=== PATIENT | female | born 1950 | race Caucasian/White ===

== ENCOUNTER → 2017-08-30 08:30 | Outpatient (CLI) | payer MEDICARE, SELFPAY ==
--- NOTE | 2017-08-30 08:34 | MM_ITS ---
MM Dig screening mamm BI w/CAD CAD Screening COMPARISON: Digital mammograms 08/25/2016 and 08/26/2015 INDICATION: There is a history of breast cancer in patient's sister diagnosed after menopause and in patient's maternal aunt. There is been previous lumpectomy right breast for malignancy TECHNIQUE: Standard CC and MLO images were obtained. R2 CAD reviewed. FINDINGS: The breasts are composed primarily of fat with scattered fibroglandular densities throughout as noted previously. Again noted is minimal post lumpectomy scarring near the axillary tail right breast with stable collection of calcifications at the lumpectomy site. There are additional benign appearing calcifications left breast. There is an asymmetric density just deep to the nipple the left breast with smooth borders and this was seen previously but may have shown slight interval increase in size. Recommend the patient return for ultrasound for additional evaluation. IMPRESSION: Fatty type breast parenchyma, post lumpectomy scarring right breast and possible subtle change in benign-appearing density left breast and recommend the patient return for ultrasound evaluation left breast BI-RADS Category: 0 Need Additional Imaging Evaluaiton RECOMMENDED FOLLOW-UP: IMM - IMMEDIATE FOLLOW-UP RECOMMENDED (A letter has been sent to the patient regarding results of the study.)
== END ==
PROVIDERS: Family Provider Family Medicine; PCP Family Medicine; Visit Provider Surgery
DX: Z12.31 Encounter for screening mammogram for malignant neoplasm of breast (principal)
CPT/HCPCS: 77067

== ENCOUNTER → 2017-09-06 14:20 | Outpatient (CLI) | payer MEDICARE, SELFPAY ==
--- NOTE | 2017-09-06 14:22 | US_ITS ---
US breast LT complete COMPARISON: Mammogram of 08/30/2017 INDICATION: Follow-up abnormal mammogram ORDERING PHYSICIAN: Sekou Vizcaino MD PATIENT AGE: 67 years TECHNIQUE: Standard images along with left breast axilla FINDINGS: There is a 7 x 9 x 3 mm cyst in the retroareolar region corresponding to the mammographic abnormality. No suspicious nodules. Small nodes are present in the axilla. IMPRESSION: Left breast nodule corresponds to a benign-appearing cyst BI-RADS Category: 2 Benign Finding(s) RECOMMENDED FOLLOW-UP: 1YR - 1 YEAR FOLLOW-UP (A letter has been sent to the patient regarding results of the study.)
== END ==
PROVIDERS: Family Provider Family Medicine; PCP Family Medicine; Visit Provider Surgery
DX: R92.8 Other abnormal and inconclusive findings on diagnostic imaging of breast (principal)
CPT/HCPCS: 76641

== ENCOUNTER → 2018-02-03 11:08 | Outpatient (CLI) | payer MEDICARE, SELFPAY ==
--- NOTE | 2018-02-03 11:12 | XR_ITS ---
XR KUB HISTORY: ITS.REASON: LT FLANK PAIN ORDERING PHYSICIAN: Markus Desai MD PATIENT AGE: 67 years COMPARISON: None FINDINGS: There are multiple right renal calculi overlying the lower pole the right kidney largest measuring up to 7 mm. Calcifications are present in the pelvis may be due to phleboliths. There is a tiny calcific density in the left pelvic region. 2 mm and could be due to a distal ureteral stone. Nonspecific bowel gas pattern with a mild amount of retained colonic feces. IMPRESSION: 1. Right nephrolithiasis. 2. Possible 2 mm left distal ureteral stone versus phlebolith
== END ==
PROVIDERS: PCP Family Medicine; Visit Provider Urology
DX: R10.9 Unspecified abdominal pain (principal); N20.0 Calculus of kidney
CPT/HCPCS: 74018; 87086; 87088; 87186

== ENCOUNTER → 2018-07-14 09:53 | Outpatient (CLI) | payer MEDICARE, SELFPAY ==
[2018-07-14 10:37] LABS: Basophils % 0.5 % (0.1-2.0); Eosinophils # 0.1 K/mm3 (0.0-0.4); Eosinophils % 1.8 % (0.1-12.0); Hematocrit 43.4 % (37.0-47.0); Hemoglobin 14.1 g/dL (12.2-16.2); Lymphocytes # 2.5 K/mm3 (0.7-4.5); Lymphocytes % 32.2 % (10-50); Mean Corpuscular HGB Conc 32.4 g/dL (31.8-35.4); Mean Corpuscular Hemoglobin 30.6 pg (27.0-31.2); Mean Corpuscular Volume 94.5 fl (81-99); Mean Platelet Volume 6.6 fl (7.4-10.4); Monocytes # 0.4 K/mm3 (0.1-1.0); Monocytes % 5.6 % (1.7-9.3); Neutrophils # 4.7 K/mm3 (1.8-7.8); Neutrophils % 59.9 % (37.0-80.0); Platelet Count 289 K/mm3 (142-424); Red Blood Count 4.59 M/mm3 (4.20-5.40); Red Cell Distribution Width 14.5 % (11.5-17.5); White Blood Count 7.8 K/mm3 (4.8-10.8)
[2018-07-14 13:23] LABS: Alanine Aminotransferase 62 U/L (12-78); Albumin Level 3.6 gm/dL (3.4-5.0); Albumin/Globulin Ratio 0.9 (1.1-1.8); Alkaline Phosphatase 118 U/L (46-116); Anion Gap 15.1 mEq/L (5-15); Aspartate Amino Transferase 31 U/L (15-37); Bilirubin,Total 0.4 mg/dL (0.2-1.0); Blood Urea Nitrogen 17 mg/dL (7-18); Calcium 9.1 mg/dL (8.5-10.1); Carbon Dioxide 28 mmol/L (21.0-32.0); Chloride 103 mmol/L (98-107); Creatinine,Serum 0.93 mg/dL (0.55-1.02); Estimated Glomerular Filt Rate 60 ml/min (>60); GFR (African American) 73 ML/MIN (>60); Glucose 105 mg/dL (74-106); Potassium 4.1 mmoL/L (3.5-5.1); Sodium 142 mmol/L (136-145); Total Protein,Serum 7.6 gm/dL (6.4-8.2)
== END ==
PROVIDERS: Visit Provider Internal Medicine Medical Oncology
DX: Z85.3 Personal history of malignant neoplasm of breast (principal)
CPT/HCPCS: 36415; 80053; 85025

== ENCOUNTER → 2018-07-20 12:33 | Outpatient (CLI) | payer MEDICARE, SELFPAY ==
--- NOTE | 2018-07-20 12:41 | XR_ITS ---
XR chest 2V HISTORY: Follow-up breast cancer ITS.REASON: breast cancer ORDERING PHYSICIAN: Alissa DAVENPORTN Lopez PATIENT AGE: 68 years COMPARISON: 09/27/2013 FINDINGS: The cardiomediastinal silhouette and pulmonary vascularity are within normal limits. The right hemidiaphragm is elevated. Patchy density is noted along the left heart border which may be due to pericardial fat pad. On the lateral view there is a nodular density lying over the anterior and mid aspect of the heart. This could be due to a summation artifact but was not readily apparent on the previous study. The remaining lungs are clear. No acute bony anomalies. IMPRESSION: 1. 1 cm nodular opacity overlies the anterior aspect of the heart on the lateral view possibly due to a summation artifact but not readily apparent previously. Follow-up is suggested. Chest CT may be of further value. If that is not performed then would at least recommend a PA and lateral chest x-ray in 4-6 weeks to see if the nodule persists. Otherwise no significant change
[2018-07-20 13:47] LABS: Thyroid Stimulating Hormone 1.79 uIU/ml (0.358-3.740)
== END ==
PROVIDERS: Visit Provider Nurse Practitioner
DX: R91.1 Solitary pulmonary nodule (principal); R53.83 Other fatigue
CPT/HCPCS: 36415; 71046; 84443

== ENCOUNTER → 2018-07-28 08:57 | Outpatient (CLI) | payer MEDICARE, SELFPAY ==
[2018-07-28 09:15] LABS: Blood Urea Nitrogen 16 mg/dL (7-18); Creatinine,Serum 0.89 mg/dL (0.55-1.02); Estimated Glomerular Filt Rate 63 ml/min (>60); GFR (African American) 77 ML/MIN (>60)
--- NOTE | 2018-07-28 09:15 | XR_ITS ---
DEXA SCAN.-BONE DENSITY STUDY HIPS AND LUMBAR SPINE HISTORY:..... Uses [id number]. Postmenopausal female TECHNIQUE: DEXA scan hip and lumbar spine The most complete data summary and color graphic presentation of the today's ( and any prior ) DEXA findings are available in PACS. Definition and treatment guidelines included. COMPARISON: January 2010 DEXA & January 2014 DEXA listed LUMBAR SPINE: Overall normal bone density lumbar spine: L2 vertebral body demonstrates the lowest T score 0.2 with BMD1.218 g/cm sq Overall mean lumbar L1-L4 T score 0.6 with BMD1.25 g/cm sq . Compared to the January 2014 DEXA the at which time the mean lumbar T score 0.8 with BMD was1.278g/cm sq Thus when comparing today's study to that prior exam there's been a 11.9% decrease mean bone density at the lumbar spine.. The markings and labeling appear satisfactory. An see no prominent marginal osteophytes to contribute. However the bone density at the lumbar spine there is remain normal -------- HIPS: Femoral neck density is best predictor of hip fracture risk . . Osteopenia at both femoral necks Right femoral neck demonstrates the lowest T score -1.6 with BMD0.816 g/cm sq . Left femoral neck T score = -1.2 with BMD 0.868 Averaging included yields yields today's Hip Mean T score = -0.9 with BMD0.896 g/cm sq . Compared to 2013 DEXA scan which showed a mean hip T score -0.7 with mean BMD0.918 g/cm sq Thus this reflects a 2.4% % decrease in overall mean bone density at the hips in the interval.. This reflects anticipated bone loss overall this length of time as as would note the age adjusted Z score has remained stable at 0.2 IMPRESSION... 1. LUMBAR SPINE: Overall normal bone density lumbar spine with. Overall lumbar T score -0.4 Lowest density at L1 vertebra noted. T score = -1.0 Note overall decrease density since prior studies but still normal density at the lumbar spine..... Warrants follow-up study 1-2 years 2. HIPS: Overall normal bone density hips. With Osteopenia both femoral necks: Overall hip T score = -0.9... Reflectsnormal bone density. Osteopenia at femoral necks bilaterally. With Right femoral neck T score = -1.6 WHO criteria for post-menopausal, Women: Normal: T-score at or above -1 SD Osteopenia: T-score between -1 and -2.5 SD Osteoporosis: T-score at or below -2.5 SD
--- NOTE | 2018-07-28 09:15 | CT_ITS ---
CT chest w con HISTORY: HISTORY of right breast cancer for years. Currently rales short of breath. Fatigue. ITS.REASON: lung nodule ORDERING PHYSICIAN: Alissa ROLLINS John PATIENT AGE: 68 years COMPARISON: PA and lateral chest July 20, 2018 residual nodule projected over the anterior chest and the heart. And chest Technique: Axial images obtained. Sagittal and coronal reformatted images are also generated and reviewed. All CT scans at the facility use one or more dose reduction, viz: automated exposure control, ma/kV adjustment per patient size (including targeted exams where dose is matched to indication, i.e. head), or iterative reconstruction technique. FINDINGS: Lungs. There is a linear area of scarring extending anteriorly at the RML is some slight undulation only slightly nodular in its appearance here the sagittal reconstruction sagittal image 33, 34, 36) axial slice 40, 39. This feature accounts for the density seen on the plain film no suspicious mass or density here. I strongly favor this is merely scarring but may benefit from follow-up with given history. Elevation of the right hemidiaphragm here anteriorly just beneath this area which may reflect some associated changes. . There is a is a tiny less than 3 mm peripheral nodule at the lateral right lung base axial image 52. Most likely a small partially calcified granuloma. Given its density for its small size There is a small 4 mm peripheral nodule on axial slice 42, posterior RLL. This also appears fairly dense for size on sagittal image 68. Most likely a small granuloma as well but nonspecific. Most importantly see no suspicious nodule or mass suspect for metastatic disease. Lungs Well expanded and clear otherwise. No pleural lesion. Borderline airway thickening centrally. No hilar nor mediastinal adenopathy. There is normal enhancement of the central pulmonary arteries. No evidence of pulmonary embolism. Aorta is normal in caliber. Benign appearing lymph node right precarinal region measuring 12 mm x 7.5 mm. Contains fat with benign thin cortex. The heart appears normal in size. No pericardial effusion Uppermost abdomen, mild fatty changes of liver. No significant findings. No significant adrenal mass. There is cortical thinning and scarring at the upper pole the of the right kidney. A benign appearing cyst 1 cm size upper pole left kidney, instantly noted. Osseous structures. T-spine intact with only very slight wedge configuration mid T-spine vertebra I believe T7. Unchanged since old studies. Old feature. May reflect mild old compression. The ribs are intact. Thyroid and limited views base of neck unremarkable. Chest wall unremarkable. IMPRESSION--- 1. No good evidence of metastatic disease.. . No acute pulmonary findings. No focal pneumonia.Only borderline airway thickening centrally 2. Minor observations which would benefit from 6 month follow-up CT noted: . Slight irregular slight nodular I believe linear scarring is seen at the medial aspect RML- just adjacent to the right heart border.. Of these areas of density of appear to account for the minimal density on prior lateral chest film. Strongly favor merely scarring but would suggest a follow-up CT chest in 6 months to confirm stability, particularly in view of history No suspicious appearing nodules otherwise evident.Tiny less than 4 mm nodules at the periphery of both right and left lower lobe towards lung bases. These are fairly dense for size and suspect or granulomas but will benefit from follow-up .....
== END ==
PROVIDERS: Visit Provider Nurse Practitioner
DX: R91.1 Solitary pulmonary nodule (principal); Z79.811 Long term (current) use of aromatase inhibitors
CPT/HCPCS: 36415; 71260; 77080; 82565; 84520; Q9967

== ENCOUNTER → 2018-09-09 12:34 | Outpatient (CLI) | payer MEDICARE, SELFPAY ==
--- NOTE | 2018-09-09 12:37 | US_ITS ---
MM Dig mamm BI DX w/CAD, US breast LT complete Ordering Physician: Sekou Vizcaino MD Patient Age: 68 years: Female HISTORY: ITS.REASON: history of rt breast CA right breast upper-outer quadrant Asked to dictate this report with patient at office TECHNIQUE: Bilateral diagnostic mammogram with Spot views left breast Ultrasound left breast COMPARISON :August 2017, 2016, 2015 bilateral mammogram FINDINGS Minimal residual fibroglandular elements with lower density breast. BILATERAL DIAGNOSTIC MAMMOGRAM with at Spot views left breast Right Mammogram appears fairly stable with no significant new findings. . Patient has had a lumpectomy upper-outer quadrant right breast. At or just deep to this site there there are some calcifications which appear similar to last years study and most likely reflecting postbiopsy calcifications, fat necrosis. Minimal residual density at the area. These features appear similar to last years mammogram. No significant new findings on right. Left Mammogram Scattered small areas of density but with no suspicious area. . These areas been seen on previous mammogram studies. Dating back to 2016. Period along the nodular densities labeled X is slightly more evident but does have a relative central lucency on the cc views. Favor benign feature. Six-month follow-up suggested. ====== LEFT BREAST ULTRASOUND Subsequent ultrasound performed at that visit does reveal up to 9.6 mm cyst cyst at retroareolar region which account for this slightly larger retroareolar nodular density here.. No other areas of concern identified on today's ultrasound. Follow-up left mammogram and left breast ultrasound 6 months suggested. IMPRESSION: --------- 1.. LEFT mammogram scattered small areas of density fairly similar to previous studies. Appear benign but Suggest follow-up mammogram and ultrasound 6 months to be cautious with patient's history 2. LEFT breast ultrasound.. Benign cyst retroareolar region on slightly larger 9.6 mm maximally, but benign appearance No other areas of concern 3. Right mammogram Previous lumpectomy upper-outer quadrant. Minimal calcification, associated with minimal density, most certainly reflecting lumpectomy scarring along with fat necrosis calcifications at deep upper-outer quadrant.-This is fairly stable since, since 2018 mammogram but would benefit from follow-up as well when patient returns. BI-RADS Category: 3 Probably Benign Finding Short Term Follow-up RECOMMENDED FOLLOW-UP: 6M - 6 MONTH FOLLOW-UP Follow up bilateral 6 -8month follow-up bilateral mammogram. With Left breast ultrasound at 6-8 months as well . (A letter has been sent to the patient regarding results of the study.)
== END ==
PROVIDERS: PCP Family Medicine; Visit Provider Surgery
DX: Z85.3 Personal history of malignant neoplasm of breast (principal); N60.02 Solitary cyst of left breast
CPT/HCPCS: 76641; 77066

== ENCOUNTER → 2019-03-13 12:45 | Outpatient (CLI) | payer MEDICARE, SELFPAY ==
--- NOTE | 2019-03-13 12:57 | US_ITS ---
MM Dig mamm BI DX w/CAD, US breast LT complete INDICATION: 6 month follow-up abnormal mammogram ORDERING PHYSICIAN: Sekou Vizcaino MD PATIENT AGE: 68 years COMPARISON: 09/09/2018, 08/30/2017 TECHNIQUE: Standard images performed along with magnified spot compression views of both breasts FINDINGS: Average fibroglandular tissue Right Breast: Prior lumpectomy upper outer aspect with some architectural distortion. Unchanged Coarse calcification in the deep upper outer aspect of the right breast appears stable. No malignant appearing mass or malignant appearing microcalcification Left breast: Previously noted nodular density in the lateral aspect of the left breast no longer apparent. Nodularity medial aspect of left breast unchanged. Left breast ultrasound: There is a 9 mm cyst in the retroareolar region similar to the previous exam. No malignant appearing mass. No significant change from 09/09/2018 IMPRESSION: Benign findings, no interval change with no convincing evidence of malignancy. Suggest patient return to screening exam in 6 months the patient back on schedule BI-RADS Category: 2 Benign Finding(s) RECOMMENDED FOLLOW-UP: 6M - 6 MONTH FOLLOW-UP (A letter has been sent to the patient regarding results of the study.)
[2019-03-13 13:05] LABS: Basophils % 0.3 % (0.1-2.0); Eosinophils # 0.1 K/mm3 (0.0-0.4); Eosinophils % 1.7 % (0.1-12.0); Hematocrit 41.9 % (37.0-47.0); Hemoglobin 13.7 g/dL (12.2-16.2); Lymphocytes # 2.5 K/mm3 (0.7-4.5); Lymphocytes % 34.2 % (10-50); Mean Corpuscular HGB Conc 32.7 g/dL (31.8-35.4); Mean Corpuscular Hemoglobin 30.3 pg (27.0-31.2); Mean Corpuscular Volume 92.5 fl (81-99); Mean Platelet Volume 6.4 fl (7.4-10.4); Monocytes # 0.4 K/mm3 (0.1-1.0); Monocytes % 5.4 % (1.7-9.3); Neutrophils # 4.3 K/mm3 (1.8-7.8); Neutrophils % 58.4 % (37.0-80.0); Platelet Count 290 K/mm3 (142-424); Red Blood Count 4.53 M/mm3 (4.20-5.40); Red Cell Distribution Width 13.9 % (11.5-17.5); White Blood Count 7.4 K/mm3 (4.8-10.8)
[2019-03-13 14:26] LABS: Alanine Aminotransferase 71 U/L (12-78); Albumin Level 3.7 gm/dL (3.4-5.0); Albumin/Globulin Ratio 0.9 (1.1-1.8); Alkaline Phosphatase 119 U/L (46-116); Aspartate Amino Transferase 34 U/L (15-37); Bilirubin,Total 0.3 mg/dL (0.2-1.0); Blood Urea Nitrogen 16 mg/dL (7-18); Calcium 9.2 mg/dL (8.5-10.1); Carbon Dioxide 26 mmol/L (21.0-32.0); Chloride 102 mmol/L (98-107); Creatinine,Serum 1.04 mg/dL (0.55-1.02); Estimated Glomerular Filt Rate 53 ml/min (>60); GFR (African American) 64 ML/MIN (>60); Globulin 3.9 gm/dl (1.3-3.2); Glucose 115 mg/dL (74-106); Sodium 139 mmol/L (136-145); Total Protein,Serum 7.6 gm/dL (6.4-8.2)
--- NOTE | 2019-03-13 14:44 | CT_ITS ---
CT chest w con HISTORY: Follow-up lung nodules ITS.REASON: BREAST CANCER, PULMONARY NODULES ORDERING PHYSICIAN: Sekou Vizcaino MD PATIENT AGE: 68 years COMPARISON: 07/28/2018 Technique: Contrast Used:75ml Optiray 350 Axial images were obtained. Sagittal, and coronal reformatted images are also generated and reviewed. All CT scans at the facility use one or more dose reduction, viz: automated exposure control, ma/kV adjustment per patient size (including targeted exams where dose is matched to indication, i.e. head), or iterative reconstruction technique. FINDINGS: There are scattered small lymph nodes in the mediastinum. No dominant adenopathy or mediastinal or hilar mass is evident. There are few scattered small noncalcified pulmonary nodules including a 3 mm nodule left upper lobe, 13 mm nodule right lower lobe laterally and anteriorly. Scarring in the right middle lobe. No new nodules evident. No effusions or infiltrates. Scarring is present in the kidneys and the upper poles. No acute bony findings. There is mild narrowing of the celiac artery of approximately 50%. IMPRESSION: 1. Overall no significant change with no acute finding. 2. Stable small bilateral nodular opacities
== END ==
PROVIDERS: Nurse Practitioner; PCP Family Medicine; Visit Provider Surgery
DX: Z85.3 Personal history of malignant neoplasm of breast (principal); C50.911 Malignant neoplasm of unspecified site of right female breast; R91.8 Other nonspecific abnormal finding of lung field
CPT/HCPCS: 36415; 71260; 76641; 77066; 80053; 85025; Q9967

== ENCOUNTER → 2019-08-28 09:25 | Outpatient (CLI) | payer MEDICARE, SELFPAY ==
[2019-08-28 10:15] LABS: Alanine Aminotransferase 46 U/L (12-78); Albumin Level 3.2 gm/dL (3.4-5.0); Albumin/Globulin Ratio 0.8 (1.1-1.8); Alkaline Phosphatase 118 U/L (46-116); Aspartate Amino Transferase 29 U/L (15-37); Bilirubin,Total 0.3 mg/dL (0.2-1.0); Blood Urea Nitrogen 18 mg/dL (7-18); Calcium 8.5 mg/dL (8.5-10.1); Carbon Dioxide 28 mmol/L (21.0-32.0); Chloride 105 mmol/L (98-107); Creatinine,Serum 1.09 mg/dL (0.55-1.02); Estimated Glomerular Filt Rate 50 ml/min (>60); GFR (African American) 61 ML/MIN (>60); Globulin 3.9 gm/dl (1.3-3.2); Glucose 116 mg/dL (74-106); Sodium 144 mmol/L (136-145); Total Protein,Serum 7.1 gm/dL (6.4-8.2)
== END ==
PROVIDERS: Visit Provider Nurse Practitioner
DX: C50.911 Malignant neoplasm of unspecified site of right female breast (principal); R91.8 Other nonspecific abnormal finding of lung field; C44.722 Squamous cell carcinoma of skin of right lower limb, including hip
CPT/HCPCS: 36415; 80053

== ENCOUNTER → 2019-08-29 12:34 | Outpatient (CLI) | payer MEDICARE, SELFPAY ==
--- NOTE | 2019-08-29 12:37 | CT_ITS ---
PROCEDURE: CT CHEST W CON CLINCAL INDICATION: BREAST CANCER, PULMONARY NODULE Follow-up pulmonary nodule she at COMPARISON: CT CHEST W CON from 03/13/2019 TECHNIQUE: IV Contrast: 75ml Optiray 350 Axial images obtained with sagittal and coronal reformats. All CT scans at the facility use one or more dose reduction, viz: automated exposure control, ma/kV adjustment per patient size (including targeted exams where dose is matched to indication, i.e. head), or iterative reconstruction technique. FINDINGS: HEART,AORTA,PULMONARY ARTERIES Unremarkable. MEDIASTINAL AND HILAR STRUCTURES: No mediastinal or hilar mass or adenopathy LUNGS: There is a stable 3 mm nodule in the right lower lobe. There is a stable 4 mm nodule in the left lung base. No new nodules are evident.. Upper abdominal images are unremarkable. No acute bony findings. PLEURAL SPACES: No significant effusion. No evidence of pneumothorax. BONY STRUCTURES: No acute bony abnormalities apparent. LYMPH NODES: No enlarged lymph nodes evident. UPPER ABDOMEN: Unremarkable. ADDITIONAL FINDINGS: No other significant abnormalities. IMPRESSION: Stable CT appearance of the chest. Small pulmonary nodular opacities are unchanged. Dictated by: Osbaldo De La Cruz MD 08/30/2019 10:48 Electronically signed by Osbaldo De La Cruz MD in [place] 08/30/2019 10:48
== END ==
PROVIDERS: PCP Family Medicine; Visit Provider Nurse Practitioner
DX: R91.8 Other nonspecific abnormal finding of lung field (principal)
CPT/HCPCS: 71260; Q9967

== ENCOUNTER → 2019-09-11 11:57 | Outpatient (CLI) | payer MEDICARE, SELFPAY ==
--- NOTE | 2019-09-11 12:03 | XR_ITS ---
PROCEDURE: XR CHEST 2V CLINICAL HISTORY: BRONCHITIS , History of breast cancer COMPARISON: CXR CHEST(2 VIEWS-NOT PORTABLE) from 09/28/2012 CXR CHEST(2 VIEWS-NOT PORTABLE) from 09/27/2013 CXR2V XR chest 2V from 07/20/2018 CT CHEST W CON from 08/29/2019 FINDINGS: The cardiomediastinal silhouette and pulmonary vascularity are within normal limits. There are chronic changes in the lung bases. No lobar consolidation or collapse. The right hemidiaphragm is elevated as before anteriorly No acute bony abnormalities. IMPRESSION: Chronic changes. No acute finding Dictated by: Osbaldo De La Cruz MD 09/11/2019 14:12 Electronically signed by Osbaldo De La Cruz MD in [facility] 09/11/2019 14:12
== END ==
PROVIDERS: PCP Family Medicine; Visit Provider Nurse Practitioner Family
DX: J40 Bronchitis, not specified as acute or chronic (principal)
CPT/HCPCS: 71046

== ENCOUNTER → 2019-09-22 12:44 | Outpatient (CLI) | payer MEDICARE, SELFPAY ==
--- NOTE | 2019-09-22 12:44 | MM_ITS ---
PROCEDURE: MM DIG SCREENING MAMM BI W/CAD Patient Age:69Y CLINICAL INDICATION: 6 mo fu, HO rt breast cancer, lt breast nodule Previous excisional biopsy/lumpectomy for malignancy 6 years ago. Family history sister with breast cancer. Maternal aunt with breast cancer. No hormones no new complaints COMPARISON: [facility] DIG MAMM-SURGICAL SPECIMEN from 08/25/2013 [facility] DIG MAMM-DX UNI-RT from 08/25/2013 [facility] DIG MAMM-SCREEN FRANCINE from 08/13/2014 [facility] DIG MAMM-SCREEN FRANCINE from 08/26/2015 [facility] DIG MAMM-DX FRANCINE W/CAD from 08/25/2016 [facility] MM Dig screening mamm BI w/CAD from 08/30/2017 BREASTLT US breast LT complete from 09/06/2017 [facility] MM Dig mamm BI DX w/CAD from 09/09/2018 MM DIG MAMM BI DX W/CAD from 03/13/2019 US BREAST LT COMPLETE from 03/13/2019 US BREAST LT COMPLETE from 09/22/2019 TECHNIQUE: Standard CC and MLO images were obtained. R2 CAD reviewed. FINDINGS: Right breast The previous biopsy/lumpectomy at deep axillary right breast. There is collection of heterogeneous calcifications at the biopsy site. Although although majority of these have been seen before and strongly favor this reflects fat necrosis the variable forms and a few additional tiny calcifications posterior aspect of this area noted today thus would benefit from magnification views to further evaluate to be cautious. The new PAC system will not allow allowed to view last year's report here Otherwise no new areas of the right breast the the the wall Left breast demonstrates the small round density left the retroareolar position. This is been seen on multiple previous studies compatible with a benign cyst. Measuring 8.5 mm today's mammography and found to be a benign cyst on subsequent ultrasound from today. No new areas of concern on left the mom IMPRESSION: Right breast: Patient has had a lumpectomy towards axillary tail right breast. A grouping of heterogeneous calcifications here has been seen before most certainly reflects fat necrosis, however suggestion of a few increased number of small calcifications along the posterior aspect of this area on today's images, thus believe would benefit from magnification views of this area to better evaluate Left breast No new areas of concern. Stable benign cyst retroareolar position BI-RAD Category: 0 Need Additional Imaging Evaluation FOLLOW-UP: IMM Immediate Follow-up Recommended Magnification views of calcifications axillary tail right breast suggested-most likely fat necrosis (A letter has been sent to the patient regarding results of the study.) Dictated by: Karl Bruno MD 09/27/2019 09:29 Electronically signed by Karl Bruno MD in [place] 09/27/2019 09:29
--- NOTE | 2019-09-22 12:44 | US_ITS ---
PROCEDURE: US BREAST LT COMPLETE CLINICAL INDICATION: 6 mo fu COMPARISON: US BREAST LT COMPLETE from 03/13/2019 FINDINGS: Benign appearing cystic lesion is seen in the retroareolar region 9.4 x 9.8 x 4.5 millimeters. This did measure 9.3 x 10.1 x 4.2 millimeters previously with some faint internal echoes. Predominantly fatty replaced axillary lymph nodes are noted largest 3.7 centimeters. IMPRESSION: BI-RADS category 2 benign Dictated by: Carrington William 09/23/2019 10:36 Electronically signed by Carrington William in [facility] 09/23/2019 10:36
== END ==
PROVIDERS: PCP Family Medicine; Visit Provider Surgery
DX: N60.02 Solitary cyst of left breast (principal); Z12.31 Encounter for screening mammogram for malignant neoplasm of breast; Z85.3 Personal history of malignant neoplasm of breast
CPT/HCPCS: 76641; 77063; 77067

== ENCOUNTER → 2019-10-03 10:27 | Outpatient (POV) | payer MEDICARE, SELFPAY | PROVIDERS: PCP Family Medicine; Visit Provider Dermatology | DX: Z00.00 Encounter for general adult medical examination without abnormal findings (principal) ==

== ENCOUNTER → 2019-10-10 14:18 | Outpatient (CLI) | payer MEDICARE, SELFPAY ==
--- NOTE | 2019-10-10 14:18 | MM_ITS ---
PROCEDURE: MM DIG MAMM DX UNILAT RT CAD Digital Breast Tomosynthesis Included CLINICAL INDICATION: Mag views of RT breast per Radiologist The right breast calcifications COMPARISON: [facility] DIG MAMM-SCREEN FRANCINE from 08/26/2015 [facility] MM Dig screening mamm BI w/CAD from 08/30/2017 [facility] MM Dig mamm BI DX w/CAD from 09/09/2018 MM DIG MAMM BI DX W/CAD from 03/13/2019 MM DIG SCREENING MAMM BI W/CAD from 09/22/2019 TECHNIQUE: Magnification compression views and right mL views obtained. FINDINGS: There is average fibroglandular tissue. Coarse benign-appearing calcifications are once again noted in the deep upper outer aspect of the right breast. In addition, there are some indeterminate calcifications noted posterior to the coarse calcifications. These may represent areas of fat necrosis or vascular calcification. Six-month follow-up is suggested. IMPRESSION: BI-RAD Category: 3 Probably Benign Finding Short Term Follow-up FOLLOW-UP: 6M 6Month Follow-up (A letter has been sent to the patient regarding results of the study.) Dictated by: Osbaldo De La Cruz MD 10/16/2019 10:19 Electronically signed by Osbaldo De La Cruz MD in [place] 10/16/2019 10:19
== END ==
PROVIDERS: PCP Family Medicine; Visit Provider Surgery
DX: Z85.3 Personal history of malignant neoplasm of breast (principal)
CPT/HCPCS: 77061; 77065; G0279

== ENCOUNTER → 2020-04-22 10:05 | Outpatient (CLI) | payer MEDICARE, SELFPAY ==
[2020-04-22 10:41] LABS: Basophils # 0.1 K/mm3 (0-0.2); Basophils % 0.6 % (0.1-2.0); Eosinophils # 0.1 K/mm3 (0.0-0.4); Eosinophils % 1.5 % (0.1-12.0); Hemoglobin 14.9 g/dL (12.2-16.2); Lymphocytes # 2.5 K/mm3 (0.7-4.5); Lymphocytes % 31.3 % (10-50); Mean Corpuscular HGB Conc 34.5 g/dL (31.8-35.4); Mean Corpuscular Hemoglobin 32.6 pg (27.0-31.2); Mean Corpuscular Volume 94.3 fl (81-99); Mean Platelet Volume 6.7 fl (7.4-10.4); Monocytes # 0.4 K/mm3 (0.1-1.0); Neutrophils % 61.6 % (37.0-80.0); Platelet Count 255 K/mm3 (142-424); Red Blood Count 4.57 M/mm3 (4.20-5.40); Red Cell Distribution Width 14.4 % (11.5-17.5); White Blood Count 8.1 K/mm3 (4.8-10.8)
[2020-04-22 11:31] LABS: Chloride 102 mmol/L (98-107); Potassium 4.2 mmoL/L (3.5-5.1); Sodium 139 mmol/L (136-145)
[2020-04-22 11:34] LABS: Alanine Aminotransferase 54 U/L (12-78); Albumin Level 4.1 g/dl (3.5-5.0); Albumin/Globulin Ratio 1.2 (1.1-1.8); Alkaline Phosphatase 106 U/L (38-126); Anion Gap 12.2 mEq/L (5-15); Aspartate Amino Transferase 48 U/L (14-36); Bilirubin,Total 0.5 mg/dl (0.2-1.3); Blood Urea Nitrogen 17 mg/dl (7-17); Carbon Dioxide 29 mmol/L (22.0-30.0); Estimated Glomerular Filt Rate 71 ml/min (>60); GFR (African American) 86 ML/MIN (>60); Globulin 3.4 g/dL (1.3-3.2); Total Protein,Serum 7.5 g/dl (6.3-8.2)
[2020-04-22 11:35] LABS: Calcium 9.3 mg/dl (8.4-10.2); Glucose 118 mg/dl (74-100)
== END ==
PROVIDERS: Visit Provider Internal Medicine Medical Oncology
DX: Z85.3 Personal history of malignant neoplasm of breast (principal)
CPT/HCPCS: 36415; 80053; 85025

== ENCOUNTER → 2020-04-24 12:50 | Outpatient (CLI) | payer MEDICARE, SELFPAY ==
--- NOTE | 2020-04-24 12:50 | MM_ITS ---
PROCEDURE: MM DIG MAMM DX UNILAT RT CAD Digital Breast Tomosynthesis Included CLINICAL INDICATION: History of breast cancer COMPARISON: MG MM DIG MAMM BI DX W/CAD from 03/13/2019 MG MM DIG SCREENING MAMM BI W/CAD from 09/22/2019 MG MM DIG MAMM DX UNILAT RT CAD from 10/10/2019 TECHNIQUE: Using Mag views of the right breast with isaias FINDINGS: Mostly fatty replaced fibroglandular tissue. Coarse calcifications are once again noted in the deep lateral aspect of the right breast with some faint calcifications posteriorly to the coarse calcifications. No malignant appearing mass or malignant-appearing microcalcification. No significant change. IMPRESSION: Benign findings. Recommend return to screening mammogram September 2020 BI-RAD Category: 2 Benign Finding(s) FOLLOW-UP: 6M 6Month Follow-up (A letter has been sent to the patient regarding results of the study.) Dictated by: Osbaldo De La Cruz MD 05/01/2020 17:26 Osbaldo De La Cruz MD in [place] 05/01/2020 17:26
== END ==
PROVIDERS: PCP Family Medicine; Visit Provider Surgery
DX: Z85.3 Personal history of malignant neoplasm of breast (principal)
CPT/HCPCS: 77061; 77065; G0279

== ENCOUNTER → 2020-06-04 10:04 | Outpatient (CLI) | payer MEDICARE, SELFPAY ==
[2020-06-04 11:12] LABS: Coronavirus 19 IgG Antibody Negative (Negative); Coronavirus 19 IgM Antibody Negative (Negative)
== END ==
PROVIDERS: Visit Provider Surgery
DX: Z01.818 Encounter for other preprocedural examination (principal); Z12.11 Encounter for screening for malignant neoplasm of colon
CPT/HCPCS: 36415; 86328

== ENCOUNTER 2020-06-06 06:19 | Day surgery (SDC) | payer MEDICARE, SELFPAY ==
[2020-06-04 10:23] VITALS: BMI 27.1
[2020-06-06 06:36] VITALS: BP 149/77; PULSE 83; RESP 18; TEMP 36.6; O2SAT 98
--- NOTE | 2020-06-06 07:16 | P.PN_ITS ---
[facility] Anesthesia Checklist - Patient Identification Patient Identification: Arm Band - Structural Data Admitted From: Home Planned Operative Procedure/s: colon Consent for Planned Operative Procedure(s) Verified: Yes Verified Documents: History and Physical - NPO Status Verified Time NPO: 00:00 - Chart Verification Results Verified: CBC, BMP - Additional verifications Patient : No Anesthesia Reactions: No Hx Blood Transfusions: No Blood Transfusion Reaction: No Cephalosporin Allergy: No Previous Colonoscopy: Yes - Cardiovascular Assessment Heart Sounds: S1 & S2 Pulse Strength: Baseline Pulse Rhythm: Regular Peripheral Edema: No - Airway Assessment C-Spine Mobility Assessed: Yes TMJ Mobility Assessed: Yes Dentition: Good Dentition - Neurological Assessment Level of Consciousness: Awake, Alert, Appropriate Hx Seizures: No Numbness or tingling in extremities: No - Anesthesia Plan Anesthesia Risk discussed: Yes Anesthesia Plan: Verified ASA Class: II Anesthesia Type: MAC [facility] History I have reviewed the patient's past medical history: Yes Medical History: Reports:: Cancer (breast and skin), Kidney Stones Denies:: Diabetes Mellitus Type 1, Diabetes Mellitus Type 2, Internal Pacemaker, Lung Disease, MRSA, Seizures *Have you ever received a pneumonia vaccine?: Yes *Have you received a flu vaccine this season?: Yes Other Medical History: Reports: Arthritis, Radiation Therapy Anesthesia experience/problems:: none Laterality Cases: Right: Breast Biopsy, Lumpectomy, Mastectomy, Bilateral: Other Other Surgeries: Yes: Cancer Surgery, Cholecystectomy, Colonoscopy, EGD, Tubal Ligation, Other. No: Pacemaker Amputation: No Fractures: No - *Social History Last grade of school completed: Advanced degree Smoking Status: Never smoker Alcohol Intake: never Alcohol Intake Frequency:: other Substance Use Type: denies use *Occupational Status:: retired Housing: house Household Members: spouse *Travel in the last 8 weeks: None Family Hx:: Cancer, Heart Attack, Hyperlipidemia, Hypertension, Stroke
[2020-06-06 07:21] VITALS: O2SAT 98
[2020-06-06 08:03] VITALS: BP 96/64; PULSE 83; RESP 18; TEMP 36.3; O2SAT 95
--- NOTE | 2020-06-06 08:05 | HMH.SCOPE ---
- Procedure: Date: 06/06/20 Patient Date of :: 1950 Procedure Performed:: Colonoscopy with polypectomy Indications:: History of colon polyps Performing Provider:: Sekou Vizcaino MD Referring Provider:: . Sedation:: Monitored anesthesia care Procedure:: After informed consent was obtained the patient was taken to the endoscopy suite. Sedation ensued after the patient was transferred to the left lateral decubitus position. Pulse, blood pressure, and oxygen saturation were monitored throughout the procedure. Digital rectal exam revealed no significant abnormality. The colonoscope was placed in position. The entire colon was evaluated. The colonoscope was carefully removed and the patient was transferred to recovery in stable condition. Please see findings and specimens below for detail. Findings:: Mild hemorrhoidal tags Bowel preparation relatively fair with some formed stool/food particles distally Fairly significant lack of relaxation Area of tattoo (right colon) with no obvious polypoid lesions Polyps (see specimens) Specimens:: Periappendiceal polyp Sessile right colon polyp (snare) -close to but not within tattoo site Sessile polyp at 65 cm (snare) Polyp at 50 cm Recommendations:: Timing of repeat colonoscopy is pending pathology but will likely be around 2-3 years secondary to history of significant polyps, polyps during this evaluation, and moderate lack of relaxation. Complications:: No immediate Estimated blood obtained (mL): 1
[2020-06-06 08:13] VITALS: BP 96/56; PULSE 74; RESP 18; O2SAT 94
[2020-06-06 08:23] VITALS: BP 110/69; PULSE 65; RESP 18; O2SAT 95
[2020-06-06 08:33] VITALS: BP 109/59; PULSE 71; RESP 18; O2SAT 95
== END 2020-06-06 08:33 | disposition home or self-care (01) ==
LOC: OUTP 06:21
PROVIDERS: PCP Family Medicine; Visit Provider Surgery
PROC: 0DJD8ZZ Inspection of Lower Intestinal Tract, Via Natural or Artificial Opening Endoscopic (ICD-10-PCS; CPT 45380; principal; 2020-06-06 07:30)
DX: Z12.11 Encounter for screening for malignant neoplasm of colon (principal); K63.5 Polyp of colon; K64.0 First degree hemorrhoids; K62.89 Other specified diseases of anus and rectum; Z86.010 Personal history of colon polyps; Z85.3 Personal history of malignant neoplasm of breast
CPT/HCPCS: 45380; 45385; 88305

== ENCOUNTER → 2020-07-29 09:29 | Outpatient (CLI) | payer MEDICARE, SELFPAY ==
--- NOTE | 2020-07-29 09:32 | XR_ITS ---
PROCEDURE: XR DEXA AXIAL SKELETON CLINICAL HISTORY: BREAST CANCER patient is postmenopausal currently on vitamin-D. COMPARISON: No exams were available for comparison FINDINGS: The right hip BMD is 0.805 grams/centimeters squared with a T-score of -1.1. The left hip BMD is 0.874 grams/centimeter squared with a T-score of -0.6. The lumbar spine BMD is 0.932 grams/centimeter squared with a T-score of -1.0. IMPRESSION: Borderline osteopenia lumbar spine, mild osteopenia values of both hips Based on these results a follow-up exam is recommended in 2 year. Dictated by: Dr. Zach Mcguire MD 07/29/2020 14:38 Dr. Zach Mcguire MD in [place] 07/29/2020 14:38
== END ==
PROVIDERS: PCP Family Medicine; Visit Provider Internal Medicine Medical Oncology
DX: Z13.820 Encounter for screening for osteoporosis (principal); Z79.811 Long term (current) use of aromatase inhibitors; Z85.3 Personal history of malignant neoplasm of breast
CPT/HCPCS: 77080

== ENCOUNTER → 2020-09-24 09:53 | Outpatient (CLI) | payer MEDICARE, SELFPAY ==
--- NOTE | 2020-09-24 09:55 | MM_ITS ---
PROCEDURE: MM DIG SCREENING MAMM BI W/CAD Digital Breast Tomosynthesis Included CLINICAL INDICATION: SCREENING There is a history of lumpectomy right breast for malignancy. There is a history of breast cancer in patient's sister and 2 maternal aunts COMPARISON: MG MM DIG SCREENING MAMM BI W/CAD from 09/22/2019 MG MM DIG MAMM DX UNILAT RT CAD from 10/10/2019 MG MM DIG MAMM DX UNILAT RT CAD from 04/24/2020 TECHNIQUE: Standard CC and MLO images and 3D Tomosynthesis was obtained. R2 CAD reviewed. FINDINGS: Minimal scattered fibroglandular densities are seen throughout both breasts. There is very minimal post lumpectomy scarring near the axillary tail right breast with a couple of coarse appearing microcalcifications at the surgical site which are stable and unchanged from the previous exams. There are no CAD markings. There are a couple of benign-appearing microcalcifications left breast and a single benign-appearing microcalcifications central portion right breast. There is a stable benign-appearing nodular density just deep to the nipple left breast likely a small cyst or fibroadenoma. IMPRESSION: Stable exam with very minimal postlumpectomy changes near the axillary tail right breast and no suspicious lesions seen BI-RAD Category: 2 Benign Finding(s) FOLLOW-UP: 1YR 1 Year Follow-up (A letter has been sent to the patient regarding results of the study.) Dictated by: Dr. Zach Mcguire MD 09/26/2020 12:23 Dr. Zach Mcguire MD in [place] 09/26/2020 12:23
== END ==
PROVIDERS: PCP Family Medicine; Visit Provider Surgery
DX: Z12.31 Encounter for screening mammogram for malignant neoplasm of breast (principal); Z85.3 Personal history of malignant neoplasm of breast
CPT/HCPCS: 77063; 77067

== ENCOUNTER → 2020-11-05 15:13 | Outpatient (POV) | payer MEDICARE, SELFPAY | PROVIDERS: Visit Provider Dermatology | DX: Z00.00 Encounter for general adult medical examination without abnormal findings (principal) ==

== ENCOUNTER → 2021-06-16 11:10 | Outpatient (CLI) | payer MEDICARE, SELFPAY ==
[2021-06-16 14:22] LABS: Blood Urea Nitrogen 12 mg/dl (7-17); Estimated Glomerular Filt Rate 83 ml/min (>60); GFR (African American) 100 ML/MIN (>60)
== END ==
PROVIDERS: Visit Provider Internal Medicine Medical Oncology
DX: Z01.812 Encounter for preprocedural laboratory examination (principal); C50.911 Malignant neoplasm of unspecified site of right female breast
CPT/HCPCS: 36415; 82565; 84520

== ENCOUNTER → 2021-06-17 12:57 | Outpatient (CLI) | payer MEDICARE, SELFPAY ==
--- NOTE | 2021-06-17 13:01 | CT_ITS ---
PROCEDURE: CT CHEST W CON CLINCAL INDICATION: BREAST CA COMPARISON: CT CT CHEST W CON from 08/29/2019 TECHNIQUE: IV Contrast: 75ml Isovue 370 Axial images obtained with sagittal and coronal reformats. All CT scans at the facility use one or more dose reduction, viz: automated exposure control, ma/kV adjustment per patient size (including targeted exams where dose is matched to indication, i.e. head), or iterative reconstruction technique. FINDINGS: HEART AND MEDIASTINAL STRUCTURES: Unremarkable. LUNGS AND PLEURAL SPACES: Stable 3 mm nodule right lower lobe laterally suggesting a granuloma. Stable 3 mm nodule left lower lobe. No new nodules evident. BONY STRUCTURES: No acute bony abnormalities apparent. UPPER ABDOMEN: Please see abdomen report performed on the same day ADDITIONAL FINDINGS: No other significant abnormalities. IMPRESSION: Stable CT appearance of the chest. Dictated by: Osbaldo De La Cruz MD 06/18/2021 17:06 Osbaldo De La Cruz MD in [place] 06/18/2021 17:06
== END ==
PROVIDERS: PCP Family Medicine; Visit Provider Internal Medicine Medical Oncology
DX: C50.911 Malignant neoplasm of unspecified site of right female breast (principal); R91.1 Solitary pulmonary nodule
CPT/HCPCS: 71260; Q9967

== ENCOUNTER → 2021-09-26 07:50 | Outpatient (CLI) | payer MEDICARE, SELFPAY ==
--- NOTE | 2021-09-26 07:50 | MM_ITS ---
PROCEDURE INFORMATION: Exam: MG Bilateral Screening 3D Mammography Exam date and time: 09/26/2021 7:50 AM Age: 71 years old Clinical indication: Encounter for screening mammogram for malignant neoplasm of breast TECHNIQUE: Imaging protocol: Bilateral Screening tomosynthesis and 2D mammography including computer-aided detection (CAD) when performed. COMPARISON: 1. MG MM DIG SCREENING MAMM BI W/CAD 09/24/2020 10:04 AM 2. MG MM DIG MAMM DX UNILAT RT CAD 04/24/2020 1:10 PM FINDINGS: MAMMOGRAPHY: Breast composition: The breasts are almost entirely fatty. Mass: No suspicious mass. Architectural distortion: None. Calcifications: No suspicious calcifications. Asymmetric density: None. Skin thickening: None. Axillary adenopathy: None. IMPRESSION: No mammographic evidence of malignancy. Annual screening is recommended unless otherwise clinically indicated. ASSESSMENT: BI-RADS Category 1: Negative
== END ==
PROVIDERS: PCP Family Medicine; Visit Provider Surgery
DX: Z12.31 Encounter for screening mammogram for malignant neoplasm of breast (principal)
CPT/HCPCS: 77063; 77067

== ENCOUNTER → 2021-10-15 11:48 | Outpatient (CLI) | payer MEDICARE, SELFPAY ==
[2021-10-15 12:49] LABS: Basophils # 0.1 K/mm3 (0-0.2); Basophils % 1.1 % (0.1-2.0); Eosinophils # 0.2 K/mm3 (0.0-0.4); Hematocrit 47.6 % (37.0-47.0); Hemoglobin 15.2 g/dL (12.2-16.2); Lymphocytes # 1.9 K/mm3 (0.7-4.5); Lymphocytes % 21.7 % (10-50); Mean Corpuscular HGB Conc 31.9 g/dL (31.8-35.4); Mean Corpuscular Hemoglobin 30.8 pg (27.0-31.2); Mean Corpuscular Volume 96.5 fl (81-99); Monocytes # 0.6 K/mm3 (0.1-1.0); Monocytes % 7.4 % (1.7-9.3); Neutrophils # 5.9 K/mm3 (1.8-7.8); Neutrophils % 67.8 % (37.0-80.0); Platelet Count 290 K/mm3 (142-424); Red Blood Count 4.93 M/mm3 (4.20-5.40); Red Cell Distribution Width 14.2 % (11.5-17.5); White Blood Count 8.6 K/mm3 (4.8-10.8)
== END ==
PROVIDERS: PCP Family Medicine; Visit Provider Physician Assistant
DX: Z20.822 Contact with and (suspected) exposure to COVID-19 (principal)
CPT/HCPCS: 36415; 85025; C9803; U0003; U0005

== ENCOUNTER → 2021-11-05 14:53 | Outpatient (CLI) | payer MEDICARE, SELFPAY | PROVIDERS: PCP Family Medicine; Visit Provider Surgery | DX: Z01.812 Encounter for preprocedural laboratory examination (principal); Z11.52 Encounter for screening for COVID-19; Z13.810 Encounter for screening for upper gastrointestinal disorder | CPT/HCPCS: C9803; U0003; U0005 ==

== ENCOUNTER 2021-11-07 06:02 | Day surgery (SDC) | payer MEDICARE, SELFPAY ==
[2021-11-06 11:55] VITALS: BMI 27.4
[2021-11-07 06:17] VITALS: BP 161/98; PULSE 84; RESP 18; TEMP 36.2; O2SAT 97
[2021-11-07 06:53] VITALS: O2SAT 97
[2021-11-07 07:05] VITALS: BP 118/73; PULSE 82; RESP 18; TEMP 36.3; O2SAT 94
--- NOTE | 2021-11-07 07:05 | HMH.SCOPE ---
- Procedure: Date: 11/07/21 Patient Date of :: 1950 Procedure Performed:: Esophagogastroduodenoscopy with biopsy Indications:: Melena Performing Provider:: Sekou Vizcaino MD Referring Provider:: Dr. Mathews Sedation:: Monitored anesthesia care Procedure:: After informed consent was obtained the patient was taken to the endoscopy suite. Sedation ensued after the patient was transferred to the left lateral decubitus position. Pulse, blood pressure, and oxygen saturation were monitored throughout the procedure. The endoscope was advanced beyond the duodenal bulb. Retroflexion within the gastric lumen was accomplished. The gastroscope was carefully removed and the patient was transferred to recovery in stable condition. Please see findings and specimens below for detail. Findings:: Patchy gastritis Multiple antral ulcerations with no sign of active hemorrhage or clot at base Patchy duodenitis Small sliding hiatal hernia Specimens:: Multiple biopsies of antral ulcerations Recommendations:: Proton pump inhibition Carafate Follow-up pathology Complications:: No immediate Estimated blood obtained (mL): 1
[2021-11-07 07:15] VITALS: BP 123/74; PULSE 76; RESP 18; O2SAT 94
--- NOTE | 2021-11-07 07:19 | SUR.PHASEII ---
Clinic not open @ this time to make follow-up appointment. Pt and made aware to call during business hours (after 8 AM) to make request 1 week follow-up. Office # given
[2021-11-07 07:25] VITALS: BP 137/78; PULSE 74; RESP 16; O2SAT 94
--- NOTE | 2021-11-07 07:36 | HMH.ANESCL ---
[facility] Anesthesia Checklist - Patient Identification Patient Identification: Arm Band - Structural Data Admitted From: Home Planned Operative Procedure/s: egd Consent for Planned Operative Procedure(s) Verified: Yes Verified Documents: Surgical Consent, History and Physical - NPO Status Verified Time NPO: 00:00 - Additional verifications Anesthesia Reactions: No Hx Blood Transfusions: No Blood Transfusion Reaction: No - Airway Assessment C-Spine Mobility Assessed: Yes (mp2) TMJ Mobility Assessed: Yes Dentition: Good Dentition - Neurological Assessment Level of Consciousness: Awake, Alert - Anesthesia Plan Anesthesia Risk discussed: Yes Anesthesia Plan: Verified ASA Class: II Anesthesia Type: MAC [facility] History I have reviewed the patient's past medical history: Yes Medical History: Reports:: Cancer (breast), Kidney Stones Denies:: Diabetes Mellitus Type 1, Diabetes Mellitus Type 2, Internal Pacemaker, Lung Disease, MRSA, Seizures *Have you ever received a pneumonia vaccine?: No *Have you received a flu vaccine this season?: Yes Other Medical History: Reports: Arthritis, Radiation Therapy. Denies: Blood Transfusion Reaction Anesthesia experience/problems:: nac Laterality Cases: Right: Breast Biopsy, Lumpectomy, Mastectomy, Bilateral: Other Other Surgeries: Yes: Cancer Surgery, Cholecystectomy, Colonoscopy, EGD, Tubal Ligation, Other. No: Pacemaker Amputation: No Fractures: No - *Social History Last grade of school completed: Advanced degree Smoking Status: Never smoker Alcohol Intake: never Alcohol Intake Frequency:: other Substance Use Type: denies use *Occupational Status:: retired Housing: house Household Members: spouse *Travel in the last 8 weeks: None Family Hx:: Cancer, Heart Attack, Hyperlipidemia, Hypertension, Stroke
[2021-11-07 07:38] VITALS: BP 133/80; PULSE 76; RESP 18; TEMP 36.3; O2SAT 96
--- NOTE | 2021-11-07 08:38 | SUR.PHASEII ---
follow-up made for 11/12 @ [id number], pt and spouse called and made aware
== END 2021-11-07 07:38 | disposition home or self-care (01) ==
LOC: OUTP 06:04
PROVIDERS: PCP Family Medicine; Visit Provider Surgery
PROC: 0DJ08ZZ Inspection of Upper Intestinal Tract, Via Natural or Artificial Opening Endoscopic (ICD-10-PCS; CPT 43235; principal; 2021-11-07 07:00)
DX: K29.70 Gastritis, unspecified, without bleeding (principal); K44.9 Diaphragmatic hernia without obstruction or gangrene; K25.9 Gastric ulcer, unspecified as acute or chronic, without hemorrhage or perforation; K29.80 Duodenitis without bleeding; Z85.3 Personal history of malignant neoplasm of breast; Z87.442 Personal history of urinary calculi; M19.90 Unspecified osteoarthritis, unspecified site; Z79.82 Long term (current) use of aspirin; Z79.899 Other long term (current) drug therapy
CPT/HCPCS: 43239; 88305

== ENCOUNTER 2022-01-06 17:40 | Inpatient (IN) | payer MEDICARE, SELFPAY ==
[2022-01-06] VITALS (10 sets, daily range): BP systolic 110–203; BP diastolic 63–109; PULSE 64–117; RESP 14–18; TEMP 36.4–36.7; O2SAT 93–97; BMI 27.4; BMI 26.9
--- NOTE | 2022-01-06 17:39 | ECG_ITS ---
APPROVED REPORT Exam: Resting ECG HR:106 bpm ECG Measurements Heart Rate 106 AXES ND 149 P 66 QRSd 76 QRS 30 QT 329 T 119 QTc 391 Conclusion SINUS TACHYCARDIA POSSIBLE LEFT ATRIAL ENLARGEMENT [-0.1mV P-WAVE IN V1/V2] POSSIBLE ANTERIOR MYOCARDIAL INFARCTION , OF INDETERMINATE AGE [30 ms Q WAVE IN V3/V4, OR R < 0.2 mV IN V4] MODERATE T-WAVE ABNORMALITY, CONSIDER LATERAL ISCHEMIA [-0.1+ mV T-WAVE IN I/aVL/V5/V6] ABNORMAL ECG UNCONFIRMED REPORT Electronically signed by : Bernard Salas MD 01/06/2022 18:38:43
--- NOTE | 2022-01-06 17:42 | XR_ITS ---
PROCEDURE INFORMATION: Exam: XR Chest Exam date and time: 01/06/22 05:44 PM Age: 71 years old Clinical indication: Pain; Chest pressure; Additional info: Cp TECHNIQUE: Imaging protocol: XR of the chest. Views: 1 view. COMPARISON: CT CHEST W CON 06/17/21 01:22 PM FINDINGS: Lungs: Unremarkable. No consolidation. Pleural spaces: Unremarkable. No pleural effusion. No pneumothorax. Heart/Mediastinum: Unremarkable. No cardiomegaly. Bones/joints: Unremarkable. IMPRESSION: No acute findings.
--- NOTE | 2022-01-06 17:43 | HMH.EDCP ---
ED Disposition Clinical Impression: NSTEMI (non-ST elevated myocardial infarction), Hypertensive emergency Disposition: Admitted As Inpatient Condition on Discharge: Good - Critical Care Critical Care Time: Yes (cardiovascular emergency 35 min) Attestation: On , the high probability of a clinically significant, sudden or life threatening deterioration of the following system(s) required my full and direct attention, intervention and personal management. The time I documented below is in addition to time spent performing reported procedures but includes the following listed in this critical care notation. Vital system(s) involved:: Circulatory Failure, Respiratory Failure My critical care processes included: Assessment & monitoring of V/S Medical Decision Making - Medical Records Medical records reviewed: Yes: I reviewed the patient's medical records. - [place] Inquiry Pt receiving controlled substance: No Vital Signs: 01/06/22 17:56 01/06/22 18:00 Pulse Rate 117 H 100 H Respiratory Rate 14 14 Blood Pressure 184/103 H 142/92 H Blood Pressure Mean 144 108 02 Sat by Pulse Oximetry 97 94 L - Lab Data Lab Results 01/06/22 17:43: WBC 8.5, RBC 4.56, Hgb 14.3, Hct 43.7, MCV 95.7, MCH 31.4 H, MCHC 32.8, RDW 14.4, Plt Count 291, MPV 7.5, Neut % (Auto) 62.6, Lymph % (Auto) 28.0, [place] % (Auto) 5.6, Eos % (Auto) 1.9, Baso % (Auto) 2.0, Neut # (Auto) 5.3, Lymph # (Auto) 2.4, [place] # (Auto) 0.5, Eos # (Auto) 0.2, Baso # (Auto) 0.2 01/06/22 17:43: Sodium 139, Potassium 4.0, Chloride 104, Carbon Dioxide 25, Anion Gap 14.0, BUN 14, Creatinine 0.80, Estimated Creat Clear 61, Estimated GFR 71, Est GFR ( Amer) 86, Glucose 168 H, Calcium 9.2, Total Bilirubin 0.5, AST 65 H, ALT 59, Alkaline Phosphatase 88, Troponin I 0.27 H, Total Protein 8.4 H, Albumin 4.4, Globulin 4.0 H, Albumin/Globulin Ratio 1.1 Result diagrams: 01/06/22 17:43 01/06/22 17:43 Orders (Tests/Meds): ED MEDICATIONS Generic Name Dose Route Start Last Admin Trade Name Dianna PRN Reason Stop Dose Admin Sodium Chloride 1,000 mls @ 125 mls/hr 01/06/22 18:45 Sod Chlor 0.9% 1000ml Bag IV 02/05/22 18:44 .Q8H ZULEMA Discontinued Medications Generic Name Dose Route Start Last Admin Trade Name Dianna PRN Reason Stop Dose Admin Aspirin 324 mg 01/06/22 17:42 01/06/22 17:52 Aspirin 81mg Chewable Tablet PO 01/06/22 17:43 324 mg ONCE ONE Administration Metoprolol Tartrate 50 mg 01/06/22 18:33 Metoprolol Tartrate 50mg Tablet PO 01/06/22 18:34 ONCE ONE Morphine Sulfate 2 mg 01/06/22 18:34 Morphine 2mg/Ml Syringe IV 01/06/22 18:35 ONCE ONE Nitroglycerin 0.4 mg 01/06/22 17:45 01/06/22 17:53 Nitroglycerin 0.4mg Sl Tablet SL 01/06/22 17:46 0.4 mg ONCE ONE Administration Nitroglycerin 1 gm 01/06/22 17:45 01/06/22 17:52 Nitroglycerin 1 Gm Ointment TD 01/06/22 17:46 1 gm ONCE ONE Administration ORDERS Category Date Time Status Troponin I Q3H Lab 01/06/22 20:45 Ordered Troponin I Q3H Lab 01/06/22 23:45 Ordered - ECG Data Tracing #1 I reviewed this ECG and interpreted as documented below: ekg by me sinus 106, non spec q waves, non spec st/t/ changes - Physician Consults Time: 18:38 (discussed with dr Barros viewed the ekg, agres to plan for admit for nstemi) - Reevaluation(s) Time: 18:39 (reeval, pain much improved, ok with plan to admit) Chest Pain HPI - General Stated Complaint: CHEST PAIN Time Seen by Provider: 01/06/22 17:43 - History of Present Illness HPI narrative: chest pressure off/on today, rad to both arms Onset (ago): hour(s) Duration: constant, intermittent Activity at onset: during rest Pain location: substernal Severity: moderate Quality: dull Pain radiation: RUE, LUE, back Relieving factors: nothing Exacerbating factors: nothing Treatments prior to or on arrival for Cardiac Chest Pain: none - Related Data Home Medications Medication
[2022-01-06 17:57] LABS: Basophils # 0.2 K/mm3 (0-0.2); Eosinophils # 0.2 K/mm3 (0.0-0.4); Eosinophils % 1.9 % (0.1-12.0); Hematocrit 43.7 % (37.0-47.0); Hemoglobin 14.3 g/dL (12.2-16.2); Lymphocytes # 2.4 K/mm3 (0.7-4.5); Mean Corpuscular HGB Conc 32.8 g/dL (31.8-35.4); Mean Corpuscular Hemoglobin 31.4 pg (27.0-31.2); Mean Corpuscular Volume 95.7 fl (81-99); Mean Platelet Volume 7.5 fl (7.4-10.4); Monocytes # 0.5 K/mm3 (0.1-1.0); Monocytes % 5.6 % (1.7-9.3); Neutrophils # 5.3 K/mm3 (1.8-7.8); Neutrophils % 62.6 % (37.0-80.0); Platelet Count 291 K/mm3 (142-424); Red Blood Count 4.56 M/mm3 (4.20-5.40); Red Cell Distribution Width 14.4 % (11.5-17.5); White Blood Count 8.5 K/mm3 (4.8-10.8)
[2022-01-06 18:02] LABS: Chloride 104 mmol/L (98-107); Sodium 139 mmol/L (136-145)
[2022-01-06 18:04] LABS: Blood Urea Nitrogen 14 mg/dl (7-17)
[2022-01-06 18:05] LABS: Alanine Aminotransferase 59 U/L (12-78); Albumin Level 4.4 g/dl (3.5-5.0); Albumin/Globulin Ratio 1.1 (1.1-1.8); Alkaline Phosphatase 88 U/L (38-126); Aspartate Amino Transferase 65 U/L (14-36); Bilirubin,Total 0.5 mg/dl (0.2-1.3); Carbon Dioxide 25 mmol/L (22.0-30.0); Creatinine Clearance Estimated 61 mL/min (50-200); Estimated Glomerular Filt Rate 71 ml/min (>60); GFR (African American) 86 ML/MIN (>60); Total Protein,Serum 8.4 g/dl (6.3-8.2)
[2022-01-06 18:06] LABS: Calcium 9.2 mg/dl (8.4-10.2); Glucose 168 mg/dl (74-100)
--- NOTE | 2022-01-06 18:10 | PC.NURSE ---
checked on pt at this time, pt reports pain is improved, rates 3/10 at this time. Notified ER MD. ER MD states only wanted pt to have 1 nitro SL and then the nitro paste. These medications have already been administered to pt. Pt at BS, call light within reach. Will continue to monitor.
[2022-01-06 18:27] LABS: Troponin I 0.27 ng/ml (0.00-0.034)
--- NOTE | 2022-01-06 18:27 | PC.NURSE ---
notified ER of critical troponin
--- NOTE | 2022-01-06 18:29 | PC.NURSE ---
called for cardiac dr
--- NOTE | 2022-01-06 18:30 | PC.NURSE ---
yariel medina called back
--- NOTE | 2022-01-06 18:37 | PC.NURSE ---
RAE MALIN at
--- NOTE | 2022-01-06 18:38 | PC.NURSE ---
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
--- NOTE | 2022-01-06 18:40 | PC.NURSE ---
RAE MALIN speaking with dr. rizvi
--- NOTE | 2022-01-06 18:45 | PC.NURSE ---
Called house for admission dmitri rizvi for nstemi
[2022-01-06 18:47] LABS: Coronavirus 19, PCR Not Detected (NotDetected); Influenza A, PCR Not Detected (NotDetected); Influenza B, PCR Not Detected (NotDetected)
--- NOTE | 2022-01-06 18:59 | PC.NURSE ---
updated pt on POC, will be waiting on covid swab to result before pt can go to assigned room on second floor. Pt states no needs at this time, at BS, call light within reach.
--- NOTE | 2022-01-06 19:07 | PC.NURSE ---
shift change report given to juanchorn
--- NOTE | 2022-01-06 19:29 | PC.NURSE ---
PT AND FAMILY UPDATED. NO COMPLAINTS VOICED. NO ACUTE DISTRESS NOTED.
--- NOTE | 2022-01-06 19:32 | PC.NURSE ---
PT REPORTS THAT SHE DOES NOT KNOW HER MEDICATIONS BUT THAT HER CAN BRING THEM IN.
--- NOTE | 2022-01-06 19:40 | PC.NURSE ---
Updated pt and that we had called report and someone would be down to take her to her room.
--- NOTE | 2022-01-06 19:46 | PC.NURSE ---
patient up to floor via wheelchair @ this time.
--- NOTE | 2022-01-06 21:12 | HMH.HP ---
*Admission Date: 01/06/22 *Chief complaint: Chest pain *History of present illness: This 71-year-old white female with no prior heart disease presents to the emergency room with chest pain and elevated troponin. She states that she has had chest pain since earlier in the day with radiation to both arms but mainly the left arm. She has felt weak. She has not been nauseated or vomited. She is not been diaphoretic. Perhaps she has had slight shortness of breath. She has had some chest pain and weakness off and on for over a month. This has been episodic. She is not a smoker. She does have a family history of heart disease in her father and her siblings. Her mother of lung cancer. She does not report any swelling of her legs. She had an episode of bronchitis in November. In the emergency room her EKG showed some ST depression in 1 and aVL and subtle elevation in V1. The emergency room physician contacted Dr. Barros. He is aware of her case. She will be seen by cardiology in the morning. [facility] History Medical History: Reports:: Cancer (Breast Cancer 2013), Kidney Stones Denies:: Chronic Obstructive Pulmonary Disease (COPD), Diabetes Mellitus Type 1, Diabetes Mellitus Type 2, Internal Pacemaker, Lung Disease, MRSA, Pulmonary Embolism, Seizures *Have you ever received a pneumonia vaccine?: Yes *Have you received a flu vaccine this season?: Yes Other Medical History: Reports: Arthritis, Radiation Therapy (For breast cancer). Denies: Blood Transfusion Reaction Laterality Cases: Right: Breast Biopsy, Lumpectomy, Mastectomy, Bilateral: Other Other Surgeries: Yes: Cancer Surgery, Cholecystectomy, Colonoscopy, EGD, Tubal Ligation, Other. No: Pacemaker Amputation: No Fractures: No - *Social History Last grade of school completed: High school graduate Smoking Status: Never smoker Alcohol Intake: never Alcohol Intake Frequency:: other Substance Use Type: denies use *Occupational Status:: retired Housing: house Household Members: spouse, children *Travel in the last 8 weeks: None Family Hx:: Cancer (Her mother of lung cancer), Coronary Artery Disease (Father and her brother and sister), Hypertension : 1 Para: 1 LMP comments: post menopausal Review of Systems - Constitutional Reports fatigue, Reports lack of energy, Reports malaise, Denies chills, Denies fever(s), Denies headache(s) - Eyes Denies change in vision - ENT Denies bleeding gums, Denies dizziness - *Cardiovascular Reports chest pain, Reports chest pain with activity, Denies generalized swelling, Denies fast heart rate, Denies fainting - *Respiratory Reports shortness of breath with activity, Denies chest congestion, Denies cough - *Gastrointestinal Denies abdominal pain, Denies difficulty swallowing (Recent EGD) - *Genitourinary Denies abnormal periods, Denies abnormal vaginal bleeding - *Musculoskeletal Denies joint pain, Denies muscle cramps - Integumentary/Breasts Denies new lesions - *Neurologic Denies abnormal movements, Denies frequent falls, Denies memory loss - Psychiatric Denies confusion, Denies depression - Endocrine Denies cold intolerance, Denies rapid, pounding, or irregular heartbeat - Allergic/Immunologic Denies throat swelling Meds Home Medications Medication Instructions Recorded Confirmed Type aspirin 81 mg tablet,delayed 81 mg PO DAILY 09/08/17 11/12/21 History release Loratadine [Claritin] 1 mg PO DAILY 11/06/21 11/12/21 History Multivitamin [Multi-Vitamin Plain] 1 each PO DAILY 11/06/21 11/12/21 History Pantoprazole Sodium [Protonix 40mg 40 mg PO BID #60 tab 11/07/21 11/12/21 Rx tablet] Sucralfate [Carafate 1gm Tab] 1 gm PO ACHS #90 tab 11/07/21 11/12/21 Rx peg 3350-electrolytes 236 240 ml PO ONCE #4000 ml 11/12/21 11/12/21 Rx gram-22.74 gram-6.74 gram-5.86 gram solution Allergies Allergy/AdvReac Type Severity Reaction Status Date / Time No Known Drug Allergies Allergy Verified
[2022-01-07] VITALS (15 sets, daily range): BP systolic 89–131; BP diastolic 53–72; PULSE 60–77; RESP 14–18; TEMP 36.5–36.8; O2SAT 94–98
--- NOTE | 2022-01-07 | IR_ITS ---
APPROVED REPORT Patient Location: Inpatient PROCEDURES Selective coronary angiogram Informed consent was obtained prior to the procedure. COMPLICATIONS None Estimated Blood Loss: Less than 10 mls TECHNIQUE One percent lidocaine used to anesthetize the right anterior aspect of the wrist. The right radial artery was accessed via the Seldinger technique. A 6 Micronesian sheath was placed in the right radial artery. 2.5 mg of verapamil, 800 mcg of nitroglycerin, 1mg Lidocaine and 5000 U Heparin were given through the arterial sheath. The papa catheter was also used to perform l selective coronary angiogram at the end of the procedure the sheath was removed good hemostasis was achieved using Traclet band, patient was transferred to the postop holding area in stable condition. ANGIOGRAPHIC RESULTS The left main artery Has a distal 20 to 30% stenosis The left anterior descending artery Has a proximal 80% stenosis which extends into a critically tight greater than 90% mid vessel stenosis followed by additional 50% stenoses. A large first diagonal artery has an ostial proximal 80% concentric stenosis The circumflex artery Is nondominant yet still large and gives rise to a large first obtuse marginal artery which has a proximal concentric 90% stenosis. Second obtuse marginal artery is large and has a proximal 70% followed by mid vessel 60 to 70% stenosis The right coronary artery Is a large dominant vessel and has proximal 80 followed by additional 80 and tandem 90% proximal then mid vessel stenoses. The MURPHY ventriculogram reveals Not performed The left ventricular end-diastolic pressure Not measured IMPRESSION Critical 3-4 vessel coronary artery disease as described above PLAN 1. Patient will be transferred immediately to [facility] for urgent coronary bypass surgery. 2. Contact has been made with CT surgery [facility] and arrangements are being made to transfer patient to the intensive care unit bed Electronically signed by : Lux Barros MD 01/07/2022 13:25:16
--- NOTE | 2022-01-07 04:27 | PC.NURSE ---
Pt is A/O x3. Pt c/o of pain x1 in neck, medicated per SEP. Pt voiced no c/o of SOA or chest pain t/o night. Pt can ambulate independently to bathroom. Pt had 550ml in output thus far in shift. Family at bedside.
--- NOTE | 2022-01-07 07:00 | CA_ITS ---
APPROVED REPORT EXAM: Comprehensive 2D, Doppler, and color-flow Echocardiogram Director Of Pulmonary Unit: Brynn Winter RVT Ht: 5 ft 4 in Wt: 160lbs BSA: 1.78 BP: 143/85 mmHg Indications: NSTEMI,ELEVATED TROP,HTN,CP,HX BREAST CA 2D Dimensions LVOT 2.02 cm (M/F) 1.5-2.5 LA Volume 12.70 mL LA Volume Index 7.13 mL/m2 (M/F) 16-34 M-Mode Dimensions RVDd 2.50 cm (0.9-2.6) LA Diam 2.65 cm (1.9-4.0) LVDd 3.18 cm (3.5-5.7) Ao Diam 2.46 cm (2.0-3.7) LVDs 2.33 cm (3.5-5.7) IVSd 1.47 cm (0.6-1.1) PWd 0.79 cm (0.6-1.1) EF (Teich) 53.60% FS 26.70% EDV (Teich) 40.30 mL TAPSE 1.94 (<1.7) ESV (Teich) 18.70 mL LV Diastology E Decel Time 257.00 (160-240 msec) E/A Ratio 0.7 MED E' 4.80 (< 7 cm/sec) E'/MED E' Ratio 15.65 (>14) LAT E' 4.80 (<10 cm/sec) E/LAT E' Ratio 15.65 (>14) Aortic Valve AO Peak GR. 4.70 mmHg Mitral Valve MV E Max Mayank. 75.00 (40-130 cm/s) MV A Velocity 104.00 (40-130 cm/s) E/A Ratio 0.72 MV Decel. Time 257.00 (160-240 ms) MV PHT 75.00 ms Pulmonary Valve PV Peak Velocity 98.00 (50-150 cm/s) Tricuspid Valve TR P. Velocity 218.00 cm/s RAP Estimate 10.00 mmHg RVSP 28.90 mmHg Left Ventricle Left atrium is mildly enlarged, left ventricle is normal size mild concentric left ventricular hypertrophy, estimated ejection fraction 45%, there is moderate hypokinesis involving mid to distal septum and apical wall. Grade 1 diastolic dysfunction seen with tissue Doppler evidence of raise left atrial pressure. Right Ventricle Right atrium and right ventricle are normal size and contractility. Aortic Valve Aortic valve is minimally thickened and calcified without aortic stenosis or aortic insufficiency. Mitral Valve Mitral valve grossly normal, trace mitral regurgitation. Tricuspid Valve Tricuspid grossly normal, there is trace tricuspid regurgitation, tricuspid regurgitation jet velocity is inadequate for calculation of the right ventricular systolic pressure. Pulmonic Valve Pulmonic valve is poorly visualized. Great Vessels Aortic root is normal size. Inferior vena cava is poorly visualized. Pericardium No significant pericardial effusion noted. Conclusion 1. Mildly enlarged left atrium, normal left ventricular size mild concentric left ventricular hypertrophy, estimated ejection fraction 45% with segmental wall motion abnormality described above, grade 1 diastolic dysfunction seen with tissue Doppler evidence of raise left atrial pressure. 2. Trace mitral and tricuspid regurgitation. 3. No significant pericardial effusion. 4. Inferior vena cava is poorly visualized. Electronically signed by : Víctor Nolan MD 01/07/2022 12:21:34
--- NOTE | 2022-01-07 07:06 | P.CONPHA_ITS ---
[facility] Pharmacy VTE Monitoring - Patient Demographics Admission date: 01/06/22 Report Date: 01/07/22 Time: 07:06 Allergies/Adverse Reactions: Patient Allergies No Known Drug Allergies Allergy (Verified 11/12/21 09:11) Height: 1.63 m Weight: 71.532 kg Patient Problems: Current Active Problems NSTEMI (non-ST elevated myocardial infarction) (Acute) Hypertensive emergency (Acute) - VTE Risk Labs: VTE Related Lab Results Hgb 14.3 g/dL (12.2-16.2) 01/06/22 17:43 Hct 43.7 % (37.0-47.0) 01/06/22 17:43 Plt Count 291 K/mm3 (142-424) 01/06/22 17:43 BUN 14 mg/dl (7-17) 01/06/22 17:43 Creatinine 0.80 mg/dl (0.52-1.04) 01/06/22 17:43 Estimated Creat Clear 61 mL/min (50-200) 01/06/22 17:43 VTE Score: 2 - Prophylaxis VTE Prophylaxis Ordered?: Yes Types of VTE Prophylaxis: TEDS Knee High Location of Applied Device: Bilateral Lower Extremeties
--- NOTE | 2022-01-07 07:06 | HMH.PHAINT ---
MEDICATION RECONCILIATION COMPLETED ON PATIENT USING EXTERNAL FILL HISTORY FROM PHARMACY. -WALDO JENNINGS, BROCKD
[2022-01-07 07:08] LABS: POC Glucose,Bedside 118 (70-110)
[2022-01-07 07:53] LABS: Chloride 104 mmol/L (98-107); Sodium 139 mmol/L (136-145)
[2022-01-07 07:54] LABS: Potassium 3.7 mmoL/L (3.5-5.1)
--- NOTE | 2022-01-07 07:55 | HMH.ACPN2 ---
Internal Medicine - PN: Subj *Date: 01/07/22 *Time: 07:55 Interval history: Generally did not feel well all night long. She describes generalized discomfort as well as chest discomfort. She said the pain medicine did help. She did not sleep. She remains n.p.o. for cardiology consult this morning. She is not short of breath. Family is at bedside. She has had her echocardiogram completed this morning. laboratory data: troponin I was 0.27 and she did have some EKG changes. Exam Vital signs and Labs for Last 24 Hours: Temp Pulse Resp BP Pulse Ox 97.8 F 67 14 131/71 96 01/07/22 04:00 01/07/22 06:00 01/07/22 04:00 01/07/22 04:00 01/07/22 04:00 Laboratory Results - last 24 hr 01/06/22 17:43: WBC 8.5, RBC 4.56, Hgb 14.3, Hct 43.7, MCV 95.7, MCH 31.4 H, MCHC 32.8, RDW 14.4, Plt Count 291, MPV 7.5, Neut % (Auto) 62.6, Lymph % (Auto) 28.0, [place] % (Auto) 5.6, Eos % (Auto) 1.9, Baso % (Auto) 2.0, Neut # (Auto) 5.3, Lymph # (Auto) 2.4, [place] # (Auto) 0.5, Eos # (Auto) 0.2, Baso # (Auto) 0.2 01/06/22 17:43: Sodium 139, Potassium 4.0, Chloride 104, Carbon Dioxide 25, Anion Gap 14.0, BUN 14, Creatinine 0.80, Estimated Creat Clear 61, Estimated GFR 71, Est GFR ( Amer) 86, Glucose 168 H, Calcium 9.2, Total Bilirubin 0.5, AST 65 H, ALT 59, Alkaline Phosphatase 88, Troponin I 0.27 H, Total Protein 8.4 H, Albumin 4.4, Globulin 4.0 H, Albumin/Globulin Ratio 1.1 01/06/22 18:38: SARS-CoV-2 (PCR) Not detected, Influenza A Untype (PCR) Not detected, Influenza Type B (PCR) Not detected 01/07/22 07:01: POC Glucose 118 H I & O for Last 24 hours: Intake & Output 01/04/22 01/05/22 01/06/22 01/07/22 11:59 11:59 11:59 11:59 Output Total 550 / 550 Balance -550 / -550 Weight 157 lb 11.2 oz - Constitutional no acute distress - *Routine Cardiovascular Exam Present: RRR - *Routine Abdominal Exam Present: soft, normoactive bowel sounds. Absent: tenderness, distended - *Routine Extremities Exam Present: pulses intact. Absent: edema, calf tenderness - *Routine Neurological Exam Present: alert, oriented X3 Assessment and Plan (1) NSTEMI (non-ST elevated myocardial infarction) Status: Acute Category: Medical Code(s): I21.4 - Non-ST elevation (NSTEMI) myocardial infarction (2) History of breast cancer Status: Chronic Category: Medical Code(s): Z85.3 - Personal history of malignant neoplasm of breast - Assessment and plan all Dx Assessment and Plan for all problems:: Echo has been completed. Cardiology to follow-up today.
[2022-01-07 07:56] LABS: Blood Urea Nitrogen 15 mg/dl (7-17); Creatinine Clearance Estimated 60 mL/min (50-200); Estimated Glomerular Filt Rate 62 ml/min (>60); GFR (African American) 75 ML/MIN (>60)
[2022-01-07 07:57] LABS: Anion Gap 9.7 mEq/L (5-15); Calcium 8.9 mg/dl (8.4-10.2); Carbon Dioxide 29 mmol/L (22.0-30.0); Glucose 130 mg/dl (74-100)
[2022-01-07 08:36] LABS: Basophils # 0.2 K/mm3 (0-0.2); Basophils % 1.3 % (0.1-2.0); Eosinophils # 0.2 K/mm3 (0.0-0.4); Eosinophils % 1.8 % (0.1-12.0); Hematocrit 39.8 % (37.0-47.0); Hemoglobin 13.1 g/dL (12.2-16.2); Lymphocytes % 17.1 % (10-50); Mean Corpuscular HGB Conc 32.9 g/dL (31.8-35.4); Mean Corpuscular Hemoglobin 30.9 pg (27.0-31.2); Mean Corpuscular Volume 93.9 fl (81-99); Mean Platelet Volume 7.3 fl (7.4-10.4); Monocytes # 0.6 K/mm3 (0.1-1.0); Monocytes % 4.8 % (1.7-9.3); Neutrophils # 8.7 K/mm3 (1.8-7.8); Platelet Count 291 K/mm3 (142-424); Red Blood Count 4.23 M/mm3 (4.20-5.40); Red Cell Distribution Width 14.4 % (11.5-17.5); White Blood Count 11.7 K/mm3 (4.8-10.8)
--- NOTE | 2022-01-07 09:25 | HMH.CNCARD ---
History of Present Illness Consult date: 01/07/22 Requesting physician: Marika Anton Consult reason: chest pain Chief complaint: nstemi Additional Medical History:: hx of breast cancer kidney stones History of present illness: 71 year old female with past medical hx of breast cancer 2013 and kidney stone presented to ER yesterday with complaint of midersternal chest pressure radiating to both shoulders and down left arm, lasting for 30 mins before improving. Patient reports was in normal state of health until yesterday when she was at [facility] and developed symptoms. chest pain was associated with nausea and weakness in arms. Reports pain had improved by the time she arrived at ER but had no fully resolved until they gave her nitro. ER EKG showed slight st depression in AVL and I, and slight elevation in V1. Trop was elevated to 0.27. Cardiology asked to consult for nstemi. [facility] History Medical History: Reports:: Cancer (Breast Cancer 2013), Kidney Stones Denies:: Chronic Obstructive Pulmonary Disease (COPD), Diabetes Mellitus Type 1, Diabetes Mellitus Type 2, Internal Pacemaker, Lung Disease, MRSA, Pulmonary Embolism, Seizures *Have you ever received a pneumonia vaccine?: Yes *Have you received a flu vaccine this season?: Yes Other Medical History: Reports: Arthritis, Radiation Therapy (For breast cancer). Denies: Blood Transfusion Reaction Laterality Cases: Right: Breast Biopsy, Lumpectomy, Mastectomy, Bilateral: Other Other Surgeries: Yes: Cancer Surgery, Cholecystectomy, Colonoscopy, EGD, Tubal Ligation, Other. No: Pacemaker Amputation: No Fractures: No - *Social History Last grade of school completed: High school graduate Smoking Status: Never smoker Alcohol Intake: never Alcohol Intake Frequency:: other Substance Use Type: denies use *Occupational Status:: retired Housing: house Household Members: spouse, children *Travel in the last 8 weeks: None Family Hx:: Cancer (Her mother of lung cancer), Coronary Artery Disease (Father and her brother and sister), Hypertension Para: 1 LMP comments: post menopausal Meds Home Medications Medication Instructions Recorded Confirmed Type aspirin 81 mg tablet,delayed 81 mg PO DAILY 09/08/17 01/06/22 History release Loratadine [Claritin] 1 mg PO DAILY 11/06/21 01/06/22 History Multivitamin [Multi-Vitamin Plain] 1 each PO DAILY 11/06/21 01/06/22 History Esomeprazole Magnesium [Nexium] 40 mg PO DAILY 01/07/22 01/07/22 History Allergies Allergy/AdvReac Type Severity Reaction Status Date / Time No Known Drug Allergies Allergy Verified 11/12/21 09:11 Exam Vital signs and Labs for Last 24 Hours: Temp Pulse Resp BP Pulse Ox 97.7 F 69 14 117/69 95 01/07/22 08:00 01/07/22 08:00 01/07/22 08:00 01/07/22 08:00 01/07/22 08:00 Laboratory Results - last 24 hr 01/06/22 17:43: WBC 8.5, RBC 4.56, Hgb 14.3, Hct 43.7, MCV 95.7, MCH 31.4 H, MCHC 32.8, RDW 14.4, Plt Count 291, MPV 7.5, Neut % (Auto) 62.6, Lymph % (Auto) 28.0, [place] % (Auto) 5.6, Eos % (Auto) 1.9, Baso % (Auto) 2.0, Neut # (Auto) 5.3, Lymph # (Auto) 2.4, [place] # (Auto) 0.5, Eos # (Auto) 0.2, Baso # (Auto) 0.2 01/06/22 17:43: Sodium 139, Potassium 4.0, Chloride 104, Carbon Dioxide 25, Anion Gap 14.0, BUN 14, Creatinine 0.80, Estimated Creat Clear 61, Estimated GFR 71, Est GFR ( Amer) 86, Glucose 168 H, Calcium 9.2, Total Bilirubin 0.5, AST 65 H, ALT 59, Alkaline Phosphatase 88, Troponin I 0.27 H, Total Protein 8.4 H, Albumin 4.4, Globulin 4.0 H, Albumin/Globulin Ratio 1.1 01/06/22 18:38: SARS-CoV-2 (PCR) Not detected, Influenza A Untype (PCR) Not detected, Influenza Type B (PCR) Not detected 01/07/22 07:01: POC Glucose 118 H 01/07/22 07:25: WBC 11.7 H D, RBC 4.23, Hgb 13.1, Hct 39.8, MCV 93.9, MCH 30.9, MCHC 32.9, RDW 14.4, Plt Count 291, MPV 7.3 L, Neut % (Auto) 75.0, Lymph % (Auto) 17.1, [place] % (Auto) 4.8, Eos % (Auto) 1.8, Baso % (Auto) 1.3, Neut # (Auto) 8.7 H, Lymph # (Auto) 2.0, [place] # (Auto) 0.6,
--- NOTE | 2022-01-08 06:40 | HMH.DCSUM ---
General - General Admission date:: 01/06/22 Discharge date: 01/07/22 HPI HPI: This 71-year-old white female with no prior heart disease who presented to the emergency room with chest pain and elevated troponin. She stated that she experienced chest pain since earlier in the day with radiation to both arms but mainly the left arm. She felt weak. She had not been nauseated or vomited. She was not diaphoretic. Perhaps she had slight shortness of breath. She described some episodic chest pain and weakness off and on for over a month. She was not a smoker. She noted a family history of heart disease in her father and her siblings. Her mother of lung cancer. She did not report any swelling of her legs. She had an episode of bronchitis in November. In the emergency room her EKG showed some ST depression in 1 and aVL and subtle elevation in V1. The emergency room physician contacted Dr. Barros. He was aware of her case. She was to be seen by cardiology the next morning. Hospital Course Hospital Course: After admission patient did have repeated chest discomfort relieved by medication. She was seen by cardiology the following morning after admission who noted non-ST elevation myocardial infarction with plans for left heart cath. Patient did have left heart cath which revealed critical 3-4 vessel coronary artery disease. Plans were made for immediate transfer to the [facility] for urgent coronary bypass surgery. Dr. Barros did contact CT surgery at and made arrangements. Patient was transferred in the p.m. of 01/07/2022 via ambulance to ICU for cardiac bypass surgery and further care. Objective Vital signs: Temp Pulse Resp BP Pulse Ox 98.2 F 73 14 121/72 94 L 01/07/22 16:14 01/07/22 16:15 01/07/22 16:15 01/07/22 16:15 01/07/22 16:15 Narrative: Exam Vital signs and Labs for Last 24 Hours: Temp Pulse Resp BP Pulse Ox 97.8 F 67 14 131/71 96 01/07/22 04:00 01/07/22 06:00 01/07/22 04:00 01/07/22 04:00 01/07/22 04:00 Laboratory Results - last 24 hr 01/06/22 17:43: WBC 8.5, RBC 4.56, Hgb 14.3, Hct 43.7, MCV 95.7, MCH 31.4 H, MCHC 32.8, RDW 14.4, Plt Count 291, MPV 7.5, Neut % (Auto) 62.6, Lymph % (Auto) 28.0, [place] % (Auto) 5.6, Eos % (Auto) 1.9, Baso % (Auto) 2.0, Neut # (Auto) 5.3, Lymph # (Auto) 2.4, [place] # (Auto) 0.5, Eos # (Auto) 0.2, Baso # (Auto) 0.2 01/06/22 17:43: Sodium 139, Potassium 4.0, Chloride 104, Carbon Dioxide 25, Anion Gap 14.0, BUN 14, Creatinine 0.80, Estimated Creat Clear 61, Estimated GFR 71, Est GFR ( Amer) 86, Glucose 168 H, Calcium 9.2, Total Bilirubin 0.5, AST 65 H, ALT 59, Alkaline Phosphatase 88, Troponin I 0.27 H, Total Protein 8.4 H, Albumin 4.4, Globulin 4.0 H, Albumin/Globulin Ratio 1.1 01/06/22 18:38: SARS-CoV-2 (PCR) Not detected, Influenza A Untype (PCR) Not detected, Influenza Type B (PCR) Not detected 01/07/22 07:01: POC Glucose 118 H I & O for Last 24 hours: Intake & Output 01/04/22 01/05/22 01/06/22 01/07/22 11:59 11:59 11:59 11:59 Output Total 550 / 550 Balance -550 / -550 Weight 157 lb 11.2 oz - Constitutional no acute distress - *Routine Cardiovascular Exam Present: RRR - *Routine Abdominal Exam Present: soft, normoactive bowel sounds. Absent: tenderness, distended - *Routine Extremities Exam Present: pulses intact. Absent: edema, calf tenderness - *Routine Neurological Exam Present: alert, oriented X3 Results Completed studies during hospitalization [Text1]: 01/06/2022 CXR IMPRESSION: No acute findings. 01/07/2022 ECHO Conclusion 1. Mildly enlarged left atrium, normal left ventricular size mild concentric left ventricular hypertrophy, estimated ejection fraction 45% with segmental wall motion abnormality described above, grade 1 diastolic dysfunction seen with tissue Doppler evidence of raise left atrial pressure. 2. Trace mitral and tricuspid regurgitation. 3.
== END 2022-01-07 17:27 | disposition short-term general hospital (02) | DRG 282 ==
LOC: ER 18:51 → 2ND 01-07 01:00
PROVIDERS: Internal Medicine; Admitting Provider Family Medicine; Emergency Provider Emergency Medicine; PCP Family Medicine; Visit Provider Family Medicine
DX: I21.4 Non-ST elevation (NSTEMI) myocardial infarction (principal); I25.10 Atherosclerotic heart disease of native coronary artery without angina pectoris; Z85.3 Personal history of malignant neoplasm of breast; Z87.442 Personal history of urinary calculi
CPT/HCPCS: 36415; 71045; 80048; 80053; 82962; 84484; 85025; 93005; 93306; 93458; 99152; 99153; 99291; C1725; C1769; C9803; J1644; J2405; Q9967; U0003; U0005

== ENCOUNTER → 2022-02-27 09:28 | Outpatient (CLI) | payer MEDICARE, SELFPAY ==
--- NOTE | 2022-02-27 09:34 | CA_ITS ---
FINAL REPORT CLINICAL HISTORY: PT S/P CABG WITH VEIN HARVESTING RLE 01/21,EDEMA AND SEVERE PAIN RLE FINDINGS: DUPLEX VENOUS SONOGRAPHY OF THE RIGHT LOWER EXTREMITY Multiple transverse and longitudinal scans were performed of the femoropopliteal deep venous system, with augmentation and compression maneuvers. FINDINGS: Normal phasic flow was noted in the visualized deep venous system. No intraluminal increased echogenicity is noted to suggest thrombus. There is normal compression and augmentation of the venous structures. No abnormal venous collaterals are seen. IMPRESSION: No evidence of deep venous thrombosis of the right lower extremity. Reviewed, Interpreted and Dictated by Talya Richardson MD Transcribed by Manisha Oconnell Authenticated and [facility]
== END ==
PROVIDERS: PCP Family Medicine; Visit Provider Internal Medicine
DX: M79.661 Pain in right lower leg (principal); R60.0 Localized edema
CPT/HCPCS: 93971

== ENCOUNTER → 2022-06-05 11:06 | Outpatient (CLI) | payer MEDICARE, SELFPAY ==
[2022-06-05 11:46] LABS: Basophils # 0.1 K/mm3 (0-0.2); Basophils % 1.1 % (0.1-2.0); Eosinophils # 0.3 K/mm3 (0.0-0.4); Eosinophils % 3.4 % (0.1-12.0); Hematocrit 41.9 % (37.0-47.0); Hemoglobin 13.6 g/dL (12.2-16.2); Lymphocytes # 2.1 K/mm3 (0.7-4.5); Lymphocytes % 26.7 % (10-50); Mean Corpuscular HGB Conc 32.4 g/dL (31.8-35.4); Mean Corpuscular Hemoglobin 29.8 pg (27.0-31.2); Mean Platelet Volume 7.6 fl (7.4-10.4); Monocytes # 0.5 K/mm3 (0.1-1.0); Monocytes % 5.8 % (1.7-9.3); Platelet Count 303 K/mm3 (142-424); Red Blood Count 4.56 M/mm3 (4.20-5.40); Red Cell Distribution Width 15.5 % (11.5-17.5); White Blood Count 7.9 K/mm3 (4.8-10.8)
[2022-06-05 12:05] LABS: Alanine Aminotransferase 36 U/L (12-78); Albumin/Globulin Ratio 1.3 (1.1-1.8); Alkaline Phosphatase 151 U/L (38-126); Anion Gap 14.9 mEq/L (5-15); Aspartate Amino Transferase 41 U/L (14-36); Bilirubin,Total 0.4 mg/dl (0.2-1.3); Blood Urea Nitrogen 13 mg/dl (7-17); Calcium 9.3 mg/dl (8.4-10.2); Carbon Dioxide 29 mmol/L (22.0-30.0); Chloride 102 mmol/L (98-107); Estimated Glomerular Filt Rate 99 ml/min (>60); GFR (African American) 120 ML/MIN (>60); Globulin 3.2 g/dL (1.3-3.2); Glucose 106 mg/dl (74-100); Potassium 3.9 mmoL/L (3.5-5.1); Sodium 142 mmol/L (136-145); Total Protein,Serum 7.2 g/dl (6.3-8.2)
== END ==
PROVIDERS: PCP Family Medicine; Visit Provider Internal Medicine Medical Oncology
DX: C44.591 Other specified malignant neoplasm of skin of breast (principal)
CPT/HCPCS: 36415; 80053; 85025

== ENCOUNTER → 2022-09-28 09:48 | Outpatient (CLI) | payer MEDICARE, SELFPAY ==
--- NOTE | 2022-09-28 09:49 | MM_ITS ---
PROCEDURE INFORMATION: Exam: MG Bilateral Screening 3D Mammography Exam date and time: 09/28/2022 9:44 AM Age: 72 years old Clinical indication: Screening. Personal history of right breast cancer, status post right lumpectomy and radiation. TECHNIQUE: Imaging protocol: Bilateral Screening tomosynthesis and 2D mammography including computer-aided detection (CAD) when performed. COMPARISON: 1. MG MM DIG SCREENING MAMM BI W/CAD 09/26/2021 7:55 AM 2. MG MM DIG SCREENING MAMM BI W/CAD 09/24/2020 10:04 AM 3. MG MM DIG MAMM DX UNILAT RT CAD 04/24/2020 1:10 PM 4. MG MM DIG MAMM DX UNILAT RT CAD 10/10/2019 2:38 PM FINDINGS: MAMMOGRAPHY: Breast composition: There are scattered areas of fibroglandular density. Mass: No suspicious mass. Architectural distortion: Stable mild right post lumpectomy architectural distortion in the upper outer quadrant posteriorly. Calcifications: No suspicious calcifications. Asymmetric density: None. Skin thickening: Stable mild right skin thickening. Axillary adenopathy: None. IMPRESSION: No mammographic evidence of malignancy. Annual screening is recommended unless otherwise clinically indicated. ASSESSMENT: BI-RADS Category 2: Benign
== END ==
PROVIDERS: PCP Family Medicine; Visit Provider Surgery
DX: Z12.31 Encounter for screening mammogram for malignant neoplasm of breast (principal)
CPT/HCPCS: 77063; 77067

== ENCOUNTER 2022-12-01 11:21 | Day surgery (SDC) | payer MEDICARE, SELFPAY ==
[2022-11-30 14:33] VITALS: BMI 27.3
[2022-12-01] VITALS (8 sets, daily range): BP systolic 86–145; BP diastolic 46–69; PULSE 54–79; RESP 14–18; TEMP 36.2–36.5; O2SAT 94–100
--- NOTE | 2022-12-01 11:59 | HMH.SCOPE ---
Procedure: Date: 12/01/22 Patient Date of :: 1950 Procedure Performed:: Esophagogastroduodenoscopy with biopsy Colonoscopy Indications:: History of gastric ulcer History of colon polyps Note: Esophagogastroduodenoscopy in October 2021 revealed multiple antral ulcerations and a small sliding hiatal hernia. Her last colonoscopy in June 2020 revealed a tubular adenoma of the right colon (close to prior tattoo). An adenoma at 65 cm was also excised. Prior colonoscopy in September 2018 was positive for large right colonic adenoma that was excised/tattooed. Performing Provider:: Sekou Vizcaino MD Referring Provider:: . Sedation:: Monitored anesthesia care Procedure:: After informed consent was obtained the patient was taken to the endoscopy suite. Sedation ensued after the patient was transferred to the left lateral decubitus position. Pulse, blood pressure, and oxygen saturation were monitored throughout the procedure. The endoscope was advanced beyond the duodenal bulb. Retroflexion within the gastric lumen was accomplished. The gastroscope was carefully removed. Digital rectal exam revealed no significant abnormality. The colonoscope was placed in position. The entire colon was evaluated. The colonoscope was carefully removed and the patient was transferred to recovery in stable condition. Please see findings and specimens below for detail. Findings:: Minimal patchy gastritis No obvious ulcerations Bowel preparation fair Hemorrhoidal cushions Right colonic tattoo region appeared normal Specimens:: Antral biopsy Recommendations:: Follow-up pathology Repeat colonoscopy in 3-5 years Complications:: No immediate Estimated blood obtained (mL): 1
--- NOTE | 2022-12-01 12:10 | EXP.ANES.CKL ---
[facility] Disclaimer: The information contained in this section may have been updated after the patient was seen, as this information can be updated by other users. Medical History 3-vessel coronary artery disease Allergies Coronary artery disease History of breast cancer History of COVID-19 History of gastroesophageal reflux (GERD) HLD (hyperlipidemia) HTN (hypertension) Kidney stone Skin cancer Urinary tract infection Surgical History H/O lumpectomy History of cholecystectomy History of colonoscopy History of heart bypass surgery History of tubal ligation Hx of lithotripsy Family History (Updated 12/01/22 @ 11:43 by Edelmira Heart RN) Sister Breast cancer Father History of open heart surgery Daughter No problems noted. Brother History of open heart surgery Mother Lung cancer Other Family history of hypertension Family history of myocardial infarction Social History (Updated 12/01/22 @ 11:43 by Edelmira Heart RN) Smoking Status: Never smoker alcohol intake: never counseling provided: provider counseling substance use type: denies use current occupational status: retired Travel in the last 8 weeks: None household members: spouse and children housing: house current occupational exposures/hazards: No caffeine: No [facility] Anesthesia Checklist Patient Identification Patient Identification: Arm Band and Verbal (Name & ) Structural Data Admitted From: Home Planned Operative Procedure/s: EGD/Colonoscopy Consent for Planned Operative Procedure(s) Verified: Yes Verified Documents: Surgical Consent NPO Status Verified Time NPO: 09:00 Additional verifications Anesthesia Reactions: No Hx Blood Transfusions: No Blood Transfusion Reaction: No Airway Assessment C-Spine Mobility Assessed: Yes TMJ Mobility Assessed: Yes Dentition: Good Dentition Neurological Assessment Level of Consciousness: Awake, Alert and Appropriate Anesthesia Plan ASA Class: II Anesthesia Type: MAC
== END 2022-12-01 14:02 | disposition home or self-care (01) ==
PROVIDERS: PCP Family Medicine; Visit Provider Surgery
PROC: 0DJ08ZZ Inspection of Upper Intestinal Tract, Via Natural or Artificial Opening Endoscopic (ICD-10-PCS; CPT 43235; principal; 2022-12-01 12:30)
DX: Z12.11 Encounter for screening for malignant neoplasm of colon (principal); Z86.010 Personal history of colon polyps; K31.9 Disease of stomach and duodenum, unspecified; K29.70 Gastritis, unspecified, without bleeding
CPT/HCPCS: 43239; G0105; 88305; J2704

== ENCOUNTER → 2023-06-11 09:46 | Outpatient (CLI) | payer MEDICARE, SELFPAY ==
--- NOTE | 2023-06-11 09:48 | CA_ITS ---
APPROVED REPORT EXAM: Comprehensive 2D, Doppler, and color-flow Echocardiogram Parts Order And Stock Clerk: AMEE Vargas, RVS Ht: 5 ft 4 in Wt: 161lbs BSA: 1.78 BP: 124/62 mmHg Indications: CAD, OHS-CABG, Hx-COVID, NSTEMI 2D Dimensions LVEF (Bravo's) 61.10 % F: 54 - 74 LV Volume 71.80 mL F: 46 - 106 LV Volume Index 40.11 mL/m2 F: 29 - 61 M-Mode Dimensions RVDd 2.88 cm (0.9-2.6) LVDd 4.29 cm (3.5-5.7) LVDs 2.75 cm (3.5-5.7) IVSd 1.01 cm (0.6-1.1) PWd 0.91 cm (0.6-1.1) EF (Teich) 65.70% EPSs 0.45 cm FS 35.90% EDV (Teich) 82.60 mL TAPSE 1.33 (<1.7) ESV (Teich) 28.30 mL LV Diastology E/A Ratio 1.03 Aortic Valve AO VTI 30.41 (18-25 cm) Mitral Valve MV A Velocity 94.00 (40-130 cm/s) MV Mean Gr. 1.60 (<2mmHg) Left Ventricle The left ventricle is normal size. The left ventricular systolic function is normal. The left ventricular ejection fraction is within the normal range. There is normal left ventricular wall thickness. There is normal LV segmental wall motion. The left ventricular diastolic function is normal. LVEF is 55%. Right Ventricle The right ventricle is normal size. Right ventricle is mildly hypokinetic. Atria The left atrium size is normal. The right atrium size is normal. There is no Doppler evidence of interatrial shunt. Aortic Valve The aortic valve opens well. There is no aortic valvular stenosis. No aortic regurgitation is present. Mitral Valve The mitral valve leaflets are mildly thickened. No evidence of mitral valve stenosis. Mild mitral regurgitation. Tricuspid Valve The tricuspid valve leaflets are thin and pliable. Trace tricuspid regurgitation. RVSP is normal. Pulmonic Valve The pulmonary valve is normal in structure. Trace pulmonic regurgitation. Great Vessels The aortic root is normal in size. The ascending aorta is normal in size. IVC is normal in size and collapses >50% with inspiration. Pericardium There is no pericardial effusion. Other Information Study Quality: Fair Conclusion Normal LV systolic function. Mildly reduced RV systolic function. Mild MR. Electronically signed by : Karuna Wilson MD 06/15/2023 19:32:39
[2023-06-11 11:13] LABS: Alanine Aminotransferase 49 U/L (12-78); Albumin Level 3.8 g/dl (3.5-5.0); Alkaline Phosphatase 100 U/L (38-126); Anion Gap 11.9 mEq/L (5-15); Aspartate Amino Transferase 53 U/L (14-36); Bilirubin,Direct 0.1 mg/dl (0.0-0.4); Bilirubin,Indirect 0.4 mg/dL (0.0-0.9); Bilirubin,Total 0.5 mg/dl (0.2-1.3); Bilirubin,Unconjugated 0.4 mg/dL (0.0-1.1); Blood Urea Nitrogen 15 mg/dl (7-17); Carbon Dioxide 30 mmol/L (22.0-30.0); Chloride 101 mmol/L (98-107); Chol/HDL Ratio 4.8 (1-3.5); Cholesterol 114 mg/dl (140-200); Estimated Glomerular Filt Rate 71 ml/min (>60); GFR (African American) 86 ML/MIN (>60); Glucose 111 mg/dl (74-100); HDL Cholesterol 24 mg/dl (40-60); Magnesium 1.8 mg/dl (1.6-2.3); Potassium 3.9 mmoL/L (3.5-5.1); Sodium 139 mmol/L (136-145); Triglycerides 114 mg/dl (30-150); VLDL Cholesterol 23 mg/dL (0-40)
[2023-06-11 11:29] LABS: Free T4 (Free Thyroxine) 1.15 ng/dl (0.78-2.19)
[2023-06-11 11:35] LABS: Direct LDL Cholesterol 72.63 mg/dL (100-129)
[2023-06-11 11:44] LABS: Thyroid Stimulating Hormone 2.01 uIU/mL (0.465-4.68)
[2023-06-11 11:52] LABS: Basophils # 0.1 K/mm3 (0-0.2); Basophils % 0.6 % (0.1-2.0); Eosinophils # 0.3 K/mm3 (0.0-0.4); Hematocrit 40.6 % (37.0-47.0); Hemoglobin 13.7 g/dL (12.2-16.2); Lymphocytes # 2.3 K/mm3 (0.7-4.5); Lymphocytes % 26.9 % (10-50); Mean Corpuscular HGB Conc 33.7 g/dL (31.8-35.4); Mean Corpuscular Hemoglobin 32.4 pg (27.0-31.2); Mean Corpuscular Volume 96.1 fl (81-99); Mean Platelet Volume 7.7 fl (7.4-10.4); Monocytes # 0.4 K/mm3 (0.1-1.0); Monocytes % 4.9 % (1.7-9.3); Neutrophils # 5.6 K/mm3 (1.8-7.8); Neutrophils % 64.7 % (37.0-80.0); Platelet Count 227 K/mm3 (142-424); Red Blood Count 4.22 M/mm3 (4.20-5.40); White Blood Count 8.7 K/mm3 (4.8-10.8)
== END ==
PROVIDERS: PCP Family Medicine; Visit Provider Nurse Practitioner Family
DX: E78.5 Hyperlipidemia, unspecified (principal); I10 Essential (primary) hypertension; I25.10 Atherosclerotic heart disease of native coronary artery without angina pectoris
CPT/HCPCS: 36415; 80048; 80061; 80076; 83735; 84439; 84443; 85025; 93306

== ENCOUNTER 2023-09-30 09:52 | Outpatient (CLI) | payer MEDICARE, SELFPAY ==
--- NOTE | 2023-09-30 09:53 | MM_ITS ---
PROCEDURE INFORMATION: Exam: MG Bilateral Screening 3D Mammography Exam date and time: 09/30/2023 9:54 AM Age: 73 years old Clinical indication: Screening examination. Personal history of right breast cancer at age 52, status post right lumpectomy and radiation. TECHNIQUE: Imaging protocol: Bilateral Screening tomosynthesis and 2D mammography including computer-aided detection (CAD) when performed. COMPARISON: 1. MG MM DIG SCREENING MAMM BI W/CAD 09/28/2022 9:44 AM 2. MG MM DIG SCREENING MAMM BI W/CAD 09/26/2021 7:55 AM 3. MG MM DIG SCREENING MAMM BI W/CAD 09/24/2020 10:04 AM 4. MG MM DIG MAMM DX UNILAT RT CAD 04/24/2020 1:10 PM FINDINGS: MAMMOGRAPHY: Breast composition: There are scattered areas of fibroglandular density. Mass: No suspicious mass. Architectural distortion: None. Calcifications: No suspicious calcifications. Asymmetric density: None. Skin thickening: Stable mild right skin thickening. Axillary adenopathy: None. IMPRESSION: No mammographic evidence of malignancy. Annual screening is recommended unless otherwise clinically indicated. In women diagnosed with breast cancer before age 50 or with a personal history of breast cancer and dense breasts, the [employer] recommends annual supplemental breast MRI in addition to yearly mammography. Alternative supplemental studies may include breast sonography or contrast enhanced mammography. ASSESSMENT: BI-RADS Category 2: Benign
== END 2023-09-30 23:59 ==
LOC: RAD 09:52
PROVIDERS: PCP Family Medicine; Visit Provider Surgery
DX: Z12.31 Encounter for screening mammogram for malignant neoplasm of breast (principal)
CPT/HCPCS: 77063; 77067

== ENCOUNTER 2023-12-10 08:52 | Outpatient (CLI) | payer MEDICARE, SELFPAY ==
--- NOTE | 2023-12-10 09:08 | XR_ITS ---
FINAL REPORT TECHNIQUE: Bone mineral density was calculated of the lumbar spine and hip. CLINICAL HISTORY: OSTEOPENIA COMPARISON: 07/29/2020 FINDINGS: Using L1-4, the bone mineral density of the spine is 1.003 g/cm2, corresponding to T-score of -0.4. Using the left hip, the bone mineral density of the femoral neck is 0.864 g/cm2, corresponding to a T-score of -0.6. Using the right hip, the bone mineral density of the femoral neck is 0.686 g/cm?, corresponding to a T-score of -1.5. NOTE: T-score: Standard deviation compared with peak bone mass of young adult mean. *Following the recommendations of the International Society of Bone densitometry, classification of hip BMD is based on the lower of two T-scores; total hip or femoral neck. IMPRESSION: Diminished bone mineral density of the right hip consistent with osteopenia. Normal bone mineral density of the left hip and lumbar spine. Reviewed, Interpreted and Dictated by Fred Turner III, MD Transcribed by Minoo Son Authenticated and [facility]
== END 2023-12-10 23:59 | disposition home or self-care (01) ==
LOC: RAD 08:53
PROVIDERS: PCP Family Medicine; Visit Provider Family Medicine
DX: M85.89 Other specified disorders of bone density and structure, multiple sites (principal)
CPT/HCPCS: 77080

== ENCOUNTER 2024-05-31 10:21 | Outpatient (CLI) | payer MEDICARE, SELFPAY ==
[2024-05-31 11:05] LABS: Basophils # 0.1 K/mm3 (0-0.2); Basophils % 0.6 % (0.1-2.0); Eosinophils # 0.2 K/mm3 (0.0-0.4); Eosinophils % 2.1 % (0.1-12.0); Hemoglobin 13.2 g/dL (12.2-16.2); Lymphocytes # 2.5 K/mm3 (0.7-4.5); Lymphocytes % 31.3 % (10-50); Mean Corpuscular HGB Conc 33.9 g/dL (31.8-35.4); Mean Corpuscular Hemoglobin 32.7 pg (27.0-31.2); Mean Corpuscular Volume 96.5 fl (81-99); Mean Platelet Volume 7.5 fl (7.4-10.4); Monocytes # 0.5 K/mm3 (0.1-1.0); Monocytes % 5.9 % (1.7-9.3); Neutrophils # 4.8 K/mm3 (1.8-7.8); Neutrophils % 60.1 % (37.0-80.0); Platelet Count 262 K/mm3 (142-424); Red Blood Count 4.04 M/mm3 (4.20-5.40); Red Cell Distribution Width 14.3 % (11.5-17.5)
[2024-05-31 12:05] LABS: Albumin Level 3.7 g/dl (3.5-5.0); Alkaline Phosphatase 89 U/L (38-126); Bilirubin,Direct 0.2 mg/dl (0.0-0.4); Bilirubin,Indirect 0.3 mg/dL (0.0-0.9); Bilirubin,Total 0.5 mg/dl (0.2-1.3); Bilirubin,Unconjugated 0.3 mg/dL (0.0-1.1); Blood Urea Nitrogen 20 mg/dl (7-17); Calcium 8.9 mg/dl (8.4-10.2); Carbon Dioxide 25 mmol/L (22.0-30.0); Cholesterol 98 mg/dl (140-200); Estimated Glomerular Filt Rate 62 ml/min (>60); GFR (African American) 74 ML/MIN (>60); Glucose 111 mg/dl (74-100); Potassium 3.8 mmoL/L (3.5-5.1); Total Protein,Serum 6.7 g/dl (6.3-8.2); Triglycerides 128 mg/dl (30-150); VLDL Cholesterol 26 mg/dL (0-40)
[2024-05-31 12:07] LABS: Alanine Aminotransferase 63 U/L (12-78); Anion Gap 13.8 mEq/L (5-15); Aspartate Amino Transferase 57 U/L (14-36); Chloride 106 mmol/L (98-107); Chol/HDL Ratio 3.6 (1-3.5); HDL Cholesterol 27 mg/dl (40-60); Sodium 141 mmol/L (136-145)
[2024-05-31 12:17] LABS: Direct LDL Cholesterol 56.35 mg/dL (100-129)
[2024-05-31 12:21] LABS: Free T4 (Free Thyroxine) 0.96 ng/dl (0.78-2.19)
[2024-05-31 12:37] LABS: Thyroid Stimulating Hormone 2.72 uIU/mL (0.465-4.68)
== END 2024-05-31 23:59 | disposition home or self-care (01) ==
LOC: RT 10:22
PROVIDERS: PCP Family Medicine; Visit Provider Nurse Practitioner
DX: I48.0 Paroxysmal atrial fibrillation (principal); E78.5 Hyperlipidemia, unspecified; I11.9 Hypertensive heart disease without heart failure; I25.10 Atherosclerotic heart disease of native coronary artery without angina pectoris
CPT/HCPCS: 36415; 80048; 80061; 80076; 84439; 84443; 85025; 93270

== ENCOUNTER 2024-10-02 09:38 | Outpatient (CLI) | payer MEDICARE, SELFPAY ==
--- NOTE | 2024-10-02 09:39 | MM_ITS ---
PROCEDURE INFORMATION: Exam: MG Bilateral Screening 3D Mammography Exam date and time: 10/02/2024 10:00 AM Age: 74 years old Clinical indication: Screening examination. Personal history of right breast cancer age 52, status post lumpectomy and radiation. TECHNIQUE: Imaging protocol: Bilateral Screening tomosynthesis and 2D mammography including computer-aided detection (CAD) when performed. COMPARISON: 1. MG MM DIG SCREENING MAMM BI W/CAD 09/30/2023 9:54 AM 2. MG MM DIG SCREENING MAMM BI W/CAD 09/28/2022 9:44 AM 3. MG MM DIG SCREENING MAMM BI W/CAD 09/26/2021 7:55 AM 4. MG MM DIG SCREENING MAMM BI W/CAD 09/24/2020 10:04 AM FINDINGS: MAMMOGRAPHY: Breast composition: There are scattered areas of fibroglandular density. Mass: No suspicious mass. Architectural distortion: Stable mild right architectural distortion and deformity in the upper breast, status post lumpectomy. Calcifications: No suspicious calcifications. Asymmetric density: None. Skin thickening: Stable mild right skin thickening. Axillary adenopathy: None. IMPRESSION: No mammographic evidence of malignancy. Annual screening is recommended unless otherwise clinically indicated. In women diagnosed with breast cancer before age 50 or with personal histories of breast cancer and dense breasts, the [employer] recommends annual supplemental MRI in addition to yearly mammography. Alternative supplemental studies may include breast sonography or contrast enhanced mammography. ASSESSMENT: BI-RADS Category 2: Benign.
== END 2024-10-02 23:59 | disposition home or self-care (01) ==
LOC: RAD 09:39
PROVIDERS: PCP Family Medicine; Visit Provider Surgery
DX: Z12.31 Encounter for screening mammogram for malignant neoplasm of breast (principal)
CPT/HCPCS: 77063; 77067

== ENCOUNTER 2025-02-19 10:47 | Outpatient (CLI) | payer MEDICARE, SELFPAY ==
--- OUTSIDE RECORDS SUMMARY | 2024-12-27 06:15 | XMS_ITS ---
Author Organization [facility] Address [address] [facility] [address] [place] [id number] Care Team Providers Care Painter Plate Name Role Phone Daren Mathews Primary Care Provider SkyMiracle landrum Unavailable [phone] Allergies No Known Allergies REASON FOR VISIT AWV Medications Medication SIG (Take, Route, Frequency, Duration) Notes Start Date End Date Status Raloxifene HCl 60 MG 1 tablet Orally Onc e a day; Duration: 30 day(s) 01/14/2024 Active Tamiflu 75 MG 1 capsule Orally Twi ce a day; Duration: 5 day(s) 09/06/2024 Not-Taking Metoprolol Tartrate 25 MG 1 tablet with food Orally Twice a day; Duration: 30 day(s) Active Atorvastatin Calcium 80 MG 1 tablet Orally Once a day; Duration: 30 day(s) Active Aspirin Adult Low Dose 81 MG 1 tab(s) orally once a day Active Benzonatate 200 MG 1 capsule Orally Thr ee times a day 09/06/2024 Not-Taking Lisinopril-hydroCHLOROthi azide 20-12.5 MG 1 tablet Orally Once a day; Duration: 30 day(s) Active Vital Signs Blood pressure systolic 118 mm Hg 12/28/19 25 Blood pressure diastolic 62 mm Hg 025 Heart Rate 89 /min 12/27/2024 Height 64 in 12/27/2024 Weight 163.8 lbs 12/27/2024 BMI 28.11 kg/m2 12/27/2024 Encounters Encounter Location Date Provider [facility] [address] [place] [id number] 12/27/2024 Miracle Kunz Adult general medica l examination Z00.00 ; Essential (primary) hypertension I10 ; Hyperlipidemia, unspecified hyperlipidemia type E78.5 ; Osteopenia M85.80 ; History of breast cancer Z85.3 ; History of squamous cell carcinoma of skin Z85.828 ; Presence of coronary angioplasty implant and graft Z95.5 ; History of peptic ulcer disease Z87.11 ; BMI 28.0-28.9,adult Z68.28 and History of non-ST elevation myocardial infarction (NSTEMI) I25.2 Assessments Encounter Date Diagnosis (ICD Code) Assessment Notes Treatment Notes Treatment Clinical Notes Section Notes 12/27/2024 Adult general medical examination (ICD-10 - Z00.00) Patient instructed to return to office Annually for Annual Wellness Visits to include annual screenings of Pain assessment, Functional Ability assessment, Cognitive Ability assessment, Fall Risk assessment, Depression screening and Bladder control screening. 12/27/2024 Essential (primary) hypertension (ICD-10 - I10) Patient will come back fasting for labs : CBC, CMP, Lipid, TSH with reflex to Free T4, 12/27/2024 Hyperlipidemia, unspecified hyperlipidemia type (ICD-10 - E78.5) 12/27/2024 Osteopenia (ICD-10 - M85.80) 12/27/2024 History of breast cancer (ICD-10 - Z85.3) 12/27/2024 History of squamous cell carcinoma of skin (ICD-10 - Z85.828) 12/27/2024 Presence of coronary angioplasty implant and graft (ICD-10 - Z95.5) 12/27/2024 History of peptic ulcer disease (ICD-10 - Z87.11) 12/27/2024 BMI 28.0-28.9,adult (ICD-10 - Z68.28) 12/27/2024 History of non-ST elevation myocardial infarction (NSTEMI) (ICD-10 - I25.2) Plan Of Treatment Treatment Notes Assessment Notes Adult general medical examination Patien t instructed to return to office Annually for Annual Wellness Visits to include annual screenings of Pain assessment, Functional Ability assessment, Cognitive Ability assessment, Fall Risk assessment, Depression screening and Bladder control screening. Essential (primary) hypertension Patient will come back fasting for labs : CBC, CMP, Lipid, TSH with reflex to Free T4, Next Appt Details Follow Up: As directed by , Reason: Progress Notes * MARIUSZ OLSENDOB: 2 (74 yo F)Acc No.[id number]:12/27/2024 Annual Wellness Visit Patient: MARIUSZ GARRISON Provider: RODDY Vanegas :1950 A ge:74 Y S ex:Female Date:12/27/2024 Address:[address] [place] [address], [place], [id number] Pcp:Daren Mathews Subjective: * Chief Complaints: * 1 . AWV. * HPI: H PI: Patient is here today for P atient is here today for a Medicare Annual Wellness Visit. * ROS: O PTHALMOLOGY: Negative for d enies vision issues. * Medical History: R ight Breast Cancer, Dx: Aug 2012, s/p lumpectomy and radiation. * Surgical History: c holecystectomy , kidney stones , tubal ligation , colonoscopy, tubular adenomas, Dr. Vizcaino 06/06/2020, colonoscopy, tubular adenomas, Dr. Vizcaino 02/23/2019, EGD, gastritis, antral ulcerations, duodenitis 11/12/2021, EGD with biopsy Dr Vizcaino 06/06/2020, EGD and colonoscopy, Dr. Vizcaino 12/01/2022, [place] 10/07/2022, CABG [facility] 01/06/2022. * Hospitalization/Major Diagno stic Procedure: [facility] [place] [facility] 01/06/2022. * Family History: F ather: alive, heart disease. M other: , lung cancer. S iblings: heart disease, hypertension. 2 brother(s) , 2 sister(s) . 1 daughter(s) - healthy. . sister- breast cancer. * Social History: C URRENT TOBACCO USE S moking Status: Patient does NOT smoke. C affeine: yes, frequency:. Marital Status: . Occupation: middle school. Past smoking status: no. Alcohol: Type: , Frequency: seldom ,Years: , Determination:. * Medications: T aking Lisinopril-hydroCHLOROthiazide 20-12.5 MG Tablet 1 tablet Orally Once a day , Taking Metoprolol Tartrate 25 MG Tablet 1 tablet with food Orally Twice a day , Taking Atorvastatin Calcium 80 MG Tablet 1 tablet Orally Once a day , Taking Aspirin Adult Low Dose 81 MG Tablet Delayed Release 1 tab(s) orally once a day , Taking Raloxifene HCl 60 MG Tablet 1 tablet Orally Once a day , Not-Taking Tamiflu 75 MG Capsule 1 capsule Orally Twice a day , Not-Taking Benzonatate 200 MG Capsule 1 capsule Orally Three times a day , Medication List reviewed and reconciled with the patient * Allergies: N .K.D.A. Objective: * Vitals: W t: 163.8, Temp: 98.3, BP: 118/62, HR: 89, Nurse: mmriya, Ht: 64, BMI:28.11. * Examination: G eneral Examination: General Appearance: N AD. H EENT: u nremarkable.?Oral cavity: n o lesions, mucosa moist and WNL, no erythema. N otto: s upple, no lymphadenopathy. C hest: n ormal shape and expansion. H eart: R SR. L ungs: c lear to auscultation. A bdomen: b owel sounds present , soft and nontender , no organomegaly or masses , no guarding or rigidity. N eurologic Exam: I ntact, gait normal. S kin: n ormal, no rash. P eripheral pulses: n ormal (2+) bilaterally. E xtremities: n o leg edema. * Physical Examination: G ENERAL: Pain Assessment: P ain level:0, on a scale of 0-10 (with 10 being extreme pain). F unctional Status Assessment: P atient response to question of how often physical health interferes with daily activities:almost never Able to perform ADLs-including meal preparation, grocery shopping, housework, laundry, taking medications or handling finances. Cognitive Status: alert and oriented. Ambulation Status: Fully ambulatory . F all Risk Assessment: I ndependant in ambulation, adequate lighting in home. Patient has NOT fallen or had trouble walking within the past 12 months. D epression Screening: D enies depressed mood or anxiety. Describes emotional health as:calm/peaceful. B ladder Control Screening: D enies problems. Assessment: * Assessment: 1. A dult general medical examination - Z00.00 (Primary) 2 . E ssential (primary) hypertension - I10 3 . H yperlipidemia, unspecified hyperlipidemia type - E78.5 4 . O steopenia - M85.80 5 . H istory of breast cancer - Z85.3 6 . H istory of squamous cell carcinoma of skin - Z85.828 ?7. P resence of coronary angioplasty implant and graft - Z95.5 8 . H istory of peptic ulcer disease - Z87.11 9 . B DC 28.0-28.9,adult - Z68.28 & #160; 1 0. H istory of non-ST elevation myocardial infarction (NSTEMI) - I25.2 ? Plan: * Treatment: 2. E ssential (primary) hypertension Notes: Patient will come back fasting for labs : CBC, CMP, Lipid, TSH with reflex to Free T4, * Procedure Codes: G 0439 ANNUAL WELLNESS VST; PPS SUBSQT VST, G2211 Complex e/m visit add on, 1090F PRES/ABSN URINE INCON ASSESS, 3288F FALL RISK ASSESSMENT DOCD, 1170F FXNL STATUS ASSESSED, 1126F AMNT PAIN NOTED NONE PRSNT, 1159F MED LIST DOCD IN RCRD, 1003F LEVEL OF ACTIVITY ASSESS, 3017F COLORECTAL CA SCREEN DOC REV, 1036F TOBACCO NON-USER, 4040F PNEUMOC IMM ORDER/ADMIN, G8950 PREHTN/HTN BP DOC INDCD F/U DOC, G8752 MOST RECENT SYSTOLIC BP < 140MM HG, G8754 MOST RECENT DIASTOLIC BP < 90MM HG, G8420 BMI<30 AND >=22 CALC & DOCU, G8510 NEG SCR Depression PT NOT ELIG F/U/PLN DOC * Preventive Medicine: Counseling: E motional health: P atient encouraged to try connecting with family or friends to boost mood. B ladder control: M ethods of controlling or managing leakage of urine discussed. E xercise: P atient advised to start, increase or maintain level of exercise/physical activity. I njury prevention: F all prevention discussed. Discussed need for cane/walker. Potential trip hazards discussed. Immunizations: P neumococcal u p to date. I nfluenza r ecommended seasonally. Screening / Special Tests: M ammogram R ecent history:10/02/2024, negative. C olonoscopy R ecent history: 12/01/22, repeat 2-3 years. B one mineral Density R ecent history: 12/10/2023, osteopenia, recommended 11/2025. * Follow Up: A s directed by * Images: Billing Information: * Visit Code: * Procedure Codes: G0439 ANNUAL WELLNESS VST; PPS SUBSQT VST. G2211 Complex e/m visit add on. 1090F PRES/ABSN URINE INCON ASSESS. 3288F FALL RISK ASSESSMENT DOCD. 1170F FXNL STATUS ASSESSED. 1126F AMNT PAIN NOTED NONE PRSNT. 1159F MED LIST DOCD IN RCRD. 1003F LEVEL OF ACTIVITY ASSESS. 3017F COLORECTAL CA SCREEN DOC REV. 1036F TOBACCO NON-USER. 4040F PNEUMOC IMM ORDER/ADMIN. G8950 PREHTN/HTN BP DOC INDCD F/U DOC. G8752 MOST RECENT SYSTOLIC BP < 140MM HG. G8754 MOST RECENT DIASTOLIC BP < 90MM HG. G8420 BMI<30 AND >=22 CALC & DOCU. G8510 NEG SCR Depression PT NOT ELIG F/U/PLN DOC. * Electronic signature of RODDY Sousa on 02/19/2025 at 10:53 AM EDT Sign off status: Pending * Provider: RODDY Vanegas Date: 0 12/27/2024 Generated for Bradly mauro/[place]ari[place]/eTransmitting on: 0 02/19/2025 10:53 AM EDT History and Physical Notes * HPI (History of Present Illness) Category Sub-Category Detail Notes Category Not es HPI Patient is here today for Patien t is here today for a Medicare Annual Wellness Visit Physical Examination Category Sub-Category Detail Notes Section Note s GENERAL Pain Assessment: Pain level:0, o n a scale of 0-10 (with 10 being extreme pain) Functional Status Assessment: Patient re sponse to question of how often physical health interferes with daily activities:almost neverAble to perform ADLs-including meal preparation, grocery shopping, housework, laundry, taking medications or handling finances.Cognitive Status: alert and oriented.Ambulation Status: Fully ambulatory Fall Risk Assessment: Independant in amb ulation, adequate lighting in home. Patient has NOT fallen or had trouble walking within the past 12 months Depression Screening: Denies depressed m ood or anxiety. Describes emotional health as:calm/peaceful Bladder Control Screening: Denies proble ms Examination Category Sub-Category Detail Notes Category Not es General Examination HEENT: unremarkable Heart: RSR Lungs: clear to auscultatio n Abdomen: bowel sounds present , soft and nontender , no organomegaly or masses , no guarding or rigidity Extremities: no leg edema General Appearance: NAD Skin: normal, no rash Neurologic Exam: Intact, gait normal Neck: supple, no lymphaden opathy Oral cavity: no lesions, mucosa m oist and WNL, no erythema Peripheral pulses: normal (2+) bilatera lly Chest: normal shape and exp ansion
--- OUTSIDE RECORDS SUMMARY | 2025-01-09 05:40 | XMS_ITS ---
Author Organization [facility] Address [address] [place] [id number] Care Team Providers Care Textile Examiner Name Role Phone Daren Mathews Primary Care Provider [phone] Miracle Kunz Unavailable [phone] Results Component Value Reference Range Notes P-Comprehensive Metabolic Pa jerry (CMP) Reviewed date:01/12/2025 12:13:45 PM Interpretation:glu 135, alt 59, ast 62 Performing Lab: Notes/Report: Test performed by [facility], [address] , [address], [place] [address] Josh Marte MD, Rn Practitioner CLIA: [id number] Sodium 141 135-145 mmol/L Potassium 4.1 3.5-5.3 mmol/L Chloride 103 97-108 mmol/L CO2 26 22-32 mmol/L Glucose 135 65-99 mg/dL BUN 18 8-23 mg/dL Creatinine 0.95 0.50-1.00 mg/dL Calcium 9.6 8.6-10.4 mg/dL eGFR by Creatinine 63 >59 mL/min/1.73m2 Protein 7.1 6.0-8.3 g/dL Albumin 3.8 3.5-5.3 g/dL Alkaline Phosphatase 110 35-121 IU/L ALT (SGPT) 59 <5-47 IU/L AST (SGOT) 62 <5-40 IU/L Bilirubin, Total 0.3 <0.2-1.2 mg/dL A/G Ratio 1.2 1.1-2.5 P-Lipid Panel Reviewed date:01/12/2025 12:13:45 PM Interpretation:trigs 162, hdl 33 Performing Lab: Notes/Report: Test performed by [facility] [address] [place] [address] Josh Marte MD, Rn Practitioner CLIA: [id number] Cholesterol 115 <200 mg/dL Triglycerides 162 <150 mg/dL HDL Cholesterol 33 >39 mg/dL Cholesterol / HDL Ratio 3.48 0.00-4.44 Ratio Non-HDL Cholesterol 82 <130 mg/dL LDL Cholesterol (Calculation) 50 <130 mg/dL LDL Cholesterol Levels* Less than 100 mg/dL Optimal 100 to 129 mg/dL Near Optimal/ Above Optimal 130 to 159 mg/dL Borderline High 160 to 189 mg/dL High 190 mg/dL and above Very High * Categories as recommended by the 2004 ATPIII guidelines LDL/HDL Ratio 1.5 <3.3 Ratio LDL Cholesterol Patient History Test Date: 01/09/2025 LDL Results: 50 Units: mg/dL % Change: - P-TSH reflex to FT4 Reviewed date:01/12/2025 12:13:45 PM Interpretation:Normal Performing Lab: Notes/Report: Test performed by [facility] [address] [place] [address] Josh Marte MD, Rn Practitioner CLIA: [id number] TSH reflex to FT4 3.74 0.43-5.25 mU/L REASON FOR VISIT blood work Encounters Encounter Location Date Provider Diagnosis [facility] [address] [facility] [address] [place] [id number] 01/09/2025 Miracle Kunz Essential (primary) hypertension I10 and Hyperlipidemia, unspecified hyperlipidemia type E78.5 Assessments Encounter Date Diagnosis (ICD Code) Assessment Notes Treatment Notes Treatment Clinical Notes Section Notes 01/09/2025 Essential (primary) hypertension (ICD-10 - I10) 01/09/2025 Hyperlipidemia, unspecified hyperlipidemia type (ICD-10 - E78.5) Plan Of Treatment Pending Test Test Name Order Date CBC Fingerstick (in house) 01/09/2025 Progress Notes * MARIUSZ OLSENDOB: 2 (74 yo F)Acc No.[id number]:01/09/2025 Patient: MARIUSZ GARRISON Provider: RODDY Vanegas :1950 A ge:74 Y S ex:Female Date:01/09/2025 Address:[address] [place] [address], [id number] Pcp:Daren Mathews Subjective: * Chief Complaints: * 1 . Blood work. * Medical History: Objective: * Vitals: Assessment: * Assessment: 1. E ssential (primary) hypertension - I10 2 . H yperlipidemia, unspecified hyperlipidemia type - E78.5 Plan: * Treatment: Value Reference Range A /G Ratio 1.2 1.1-2.5 - * A lbumin 3.8 3.5-5.3 - g/dL * A lkaline Phosphatase 110 35-121 - IU/L * A LT (SGPT) 59 H <5-47 - IU/L * A ST (SGOT) 62 H <5-40 - IU/L * B ilirubin, Total 0.3 <0.2-1.2 - mg/dL * B UN 18 8-23 - mg/dL * C alcium 9.6 8.6-10.4 - mg/dL * C hloride 103 97-108 - mmol/L * C O2 26 22-32 - mmol/L * C reatinine 0.95 0.50-1.00 - mg/dL * G lucose 135 H 65-99 - mg/dL * P otassium 4.1 3.5-5.3 - mmol/L * S odium 141 135-145 - mmol/L * P rotein 7.1 6.0-8.3 - g/dL * e GFR by Creatinine 63 >59 - mL/min/1.73m2 * Cindy Esparza 01/12/2025 12: 13:36 PM EDT > See phone encounter ?LAB: P-TSH reflex to FT4 (Collection Date & Time - 01/09/2025 08:53 AM)? Normal* Value Reference Range T SH reflex to FT4 3.74 0.43-5.25 - mU/L * Cindy Esparza 01/12/2025 12: 13:36 PM EDT > See phone encounter 2.?Hyperlipidemia, unspecified hyperlipidemia type?LAB: P-Lipid Panel (Collection Date & Time - 01/09/2025 08:53 AM)?trigs 162, hdl 33* Value Reference Range C holesterol / HDL Ratio 3.48 0.00-4.44 - Ratio * C holesterol 115 <200 - mg/dL * H DL Cholesterol 33 L >39 - mg/dL * L DL Cholesterol (Calculation) 50 <130 - mg/d L * L DL/HDL Ratio 1.5 <3.3 - Ratio * N on-HDL Cholesterol 82 <130 - mg/dL * T riglycerides 162 H <150 - mg/dL * Cindy Esparza 01/12/2025 12: 13:36 PM EDT > See phone encounter * Labs: * L ab: CBC Fingerstick (in house) * Images: Billing Information: * Visit Code: * Procedure Codes: * Electronic signature of RODDY Sousa on 02/19/2025 at 10:53 AM EDT Sign off status: Pending * Provider: RODDY Vanegas Date: 0 01/09/2025 Generated for Printi ng/Faxing/eTransmitting on: 0 02/19/2025 10:53 AM EDT
--- OUTSIDE RECORDS SUMMARY | 2025-01-25 06:00 | XMS_ITS ---
Author Organization [facility] Address [address] [place] [id number] Care Team Providers Care Director Of Payroll Name Role Phone Daren Mathews Primary Care Provider Miarcle Kunz Unavailable [phone] Results Component Value Reference Range Notes Glycohemoglobin A1c (in hous e) Reviewed date:02/08/2025 02:20:22 PM Interpretation:6.3 Performing Lab: Notes/Report: 6.3 glycohemoglobin 6.3% 5 - 6.5 % P-Comprehensive Metabolic Pa jerry (CMP) Reviewed date:02/08/2025 02:20:22 PM Interpretation:gluc 115, alt 65, ast 56 Performing Lab: Notes/Report: Test performed by [facility] [address] [place] [address] , [address], [place] [address] Josh Marte MD, Veterinary Practice Manager CLIA: [id number] Sodium 141 135-145 mmol/L Potassium 4.7 3.5-5.3 mmol/L Chloride 102 97-108 mmol/L CO2 25 20-32 mmol/L Glucose 115 65-99 mg/dL BUN 23 8-23 mg/dL Creatinine 0.93 0.50-1.00 mg/dL Calcium 10.0 8.6-10.4 mg/dL eGFR by Creatinine 65 >59 mL/min/1.73m2 Protein 7.3 6.0-8.3 g/dL Albumin 4.1 3.5-5.3 g/dL Alkaline Phosphatase 101 35-121 IU/L ALT (SGPT) 65 <5-47 IU/L AST (SGOT) 56 <5-40 IU/L Bilirubin, Total 0.4 <0.2-1.2 mg/dL A/G Ratio 1.3 1.1-2.5 REASON FOR VISIT Blood work Encounters Encounter Location Date Provider Diagnosis [facility] [address] [facility] [address] [place] [id number] 01/25/2025 Miracle Joaquina Hyperglycemia R73.9 and Elevated liver function tests R79.89 Assessments Encounter Date Diagnosis (ICD Code) Assessment Notes Treatment Notes Treatment Clinical Notes Section Notes 01/25/2025 Hyperglycemia (ICD-10 - R73.9) 01/25/2025 Elevated liver function tests (ICD-10 - R79.89) Plan Of Treatment No Information Progress Notes * MARIUSZ OLSENDOB: 2 (74 yo F)Acc No.[id number]:01/25/2025 Patient: MARIUSZ GARRISON Provider: RODDY Vanegas :1950 A ge:74 Y S ex:Female Date:01/25/2025 Address:[address] [place] [address], [place], [id number] Pcp:Daren Mathews Subjective: * Chief Complaints: * 1 . Blood work. * Medical History: Objective: * Vitals: Assessment: * Assessment: 1. H yperglycemia - R73.9 (Primary) 2 . E levated liver function tests - R79.89 Plan: * Treatment: Value Reference Range g lycohemoglobin 6.3% 5 - 6.5 % * Dhara Riggins 01/25/2025 10 :33:44 AM EDT > Cindy Esparza 02/08/2025 02:20:15 PM EDT > See phone encounter 2.?Elevated liver function tests?LAB: P-Comprehensive Metabolic Panel (CMP) (Collection Date & Time - 01/25/2025 09:08 AM)?gluc 115, alt 65, ast 56* Value Reference Range A /G Ratio 1.3 1.1-2.5 - * A lbumin 4.1 3.5-5.3 - g/dL * A lkaline Phosphatase 101 35-121 - IU/L * A LT (SGPT) 65 H <5-47 - IU/L * A ST (SGOT) 56 H <5-40 - IU/L * B ilirubin, Total 0.4 <0.2-1.2 - mg/dL * B UN 23 8-23 - mg/dL * C alcium 10.0 8.6-10.4 - mg/dL * C hloride 102 97-108 - mmol/L * C O2 25 20-32 - mmol/L * C reatinine 0.93 0.50-1.00 - mg/dL * G lucose 115 H 65-99 - mg/dL * P otassium 4.7 3.5-5.3 - mmol/L * S odium 141 135-145 - mmol/L * P rotein 7.3 6.0-8.3 - g/dL * e GFR by Creatinine 65 >59 - mL/min/1.73m2 * Cindy Esparza 02/08/2025 02: 20:15 PM EDT > See phone encounter * Procedure Codes: 8 3036 GLYCATED HEMOGLOBIN TEST, Modifiers: QW , 3044F HG A1C LEVEL LT 7.0% * Images: Billing Information: * Visit Code: * Procedure Codes: 10563 GLYCATED HEMOGLOBIN TEST. Modifiers: QW 3044F HG A1C LEVEL LT 7.0%. * Electronic signature of RODDY Sousa on 02/19/2025 at 10:53 AM EDT Sign off status: Pending * Provider: RODDY Vanegas Date: 0 01/25/2025 Generated for Bradly mauro/[place]ari[place]/eTransmitting on: 0 02/19/2025 10:53 AM EDT
--- OUTSIDE RECORDS SUMMARY | 2025-02-19 10:53 | XMS_ITS | Patient Health Record ---
[facility] Address [address] [place] [id number] Care Team Providers Care Corporation Secretary Name Role Phone Daren Mathews Primary Care Provider [phone] Jazmin Burns Unavailable [phone] Joaquina Miracle Unavailable [phone] Allergies No Known Allergies Results Component Value Reference Range Notes P-TSH reflex to FT4 Reviewed date:01/12/2025 12:13:45 PM Interpretation:Normal Performing Lab: Notes/Report: Test performed by [facility] [address] [place] [address] , [address], [place] [address] Josh Marte MD, Child Care Giver CLIA: [id number] TSH reflex to FT4 3.74 0.43-5.25 mU/L P-Lipid Panel Reviewed date:01/12/2025 12:13:45 PM Interpretation:trigs 162, hdl 33 Performing Lab: Notes/Report: Test performed by [facility] [address] [place], [place] [address] [place] , [address], [place] [address] Josh Marte MD, Child Care Giver CLIA: [id number] Cholesterol 115 <200 mg/dL Triglycerides 162 <150 [...] Results: 50 Units: mg/dL % Change: - P-Comprehensive Metabolic Pa jerry (CMP) Reviewed date:01/12/2025 12:13:45 PM Interpretation:glu 135, alt 59, ast 62 Performing Lab: Notes/Report: Test performed by [facility] [address] [place] [address] , [address], [place] [address] Josh Marte MD, Child Care Giver CLIA: [id number] Sodium 141 135-145 mmol/L Potassium 4.1 3.5-5.3 [...] 0.3 <0.2-1.2 mg/dL A/G Ratio 1.2 1.1-2.5 Covid test (in house) Reviewed date:09/06/2024 12:42:09 PM Interpretation: Performing Lab: Notes/Report: Result: Neg Influenza Screen (in house) Reviewed date:09/06/2024 12:42:21 PM Interpretation: Performing Lab: Notes/Report: results Pos CBC Fingerstick (in house) Reviewed date:03/23/2024 04:28:04 PM Interpretation: Performing Lab: Notes/Report: wbc 15.5 3.5 - 10 lym 15.5 15 - 50 mid 4.3 2 - 15 gran 80.2 35 - 80 rbc 4.20 3.5 - 5.5 hgb 13.4 11.5 - 16.5 hct 41.4 35 - 55 mcv 98.5 75 - 100 mch 32.0 25 - 35 mchc 32.4 31 - 38 plat 219 100 - 400 Glycohemoglobin A1c (in hous e) Reviewed date:02/08/2025 02:20:22 PM Interpretation:6.3 Performing Lab: Notes/Report: 6.3 glycohemoglobin 6.3% 5 - 6.5 % P-Comprehensive Metabolic Pa jerry (CMP) Reviewed date:02/08/2025 02:20:22 PM Interpretation:gluc 115, alt 65, ast 56 Performing Lab: Notes/Report: Test performed by [facility] , [address], [place] [address] Josh Marte MD, Child Care Giver CLIA: [id number] Sodium 141 135-145 mmol/L Potassium 4.7 3.5-5.3 [...] 0.4 <0.2-1.2 mg/dL A/G Ratio 1.3 1.1-2.5 Medications Medication SIG (Take, Route, Frequency, Duration) Notes Start Date End Date Status metFORMIN HCl ER 500 MG 1 tablet with ev ening meal Orally Once a day; Duration: 30 days 02/09/2025 Active Raloxifene HCl 60 MG 1 tablet Orally Onc e a day; Duration: 30 day(s) 01/14/2024 Active Tamiflu 75 MG 1 capsule Orally Twi ce a day; Duration: 5 day(s) 09/06/2024 Not-Taking Benzonatate 200 MG 1 capsule Orally Thr ee times a day 09/06/2024 Not-Taking Lisinopril-hydroCHLOROthi azide 20-12.5 MG 1 tablet Orally Once a day; Duration: 30 day(s) Active Metoprolol Tartrate 25 MG 1 tablet with food Orally Twice a day; Duration: 30 day(s) Active Atorvastatin Calcium 80 MG 1 tablet Orally Once a day; Duration: 30 day(s) Active Aspirin Adult Low Dose 81 MG 1 tab(s) orally once a day Active Immunizations Vaccine Route Administration Date Status Comme nts COVID 19 Moderna Unknown 10/31/2020 Administered COVID 19 Moderna Unknown 06/11/2021 Administered DT, 7 YEARS OR OLDER Unknown 03/19/1998 Administered Fluzone High Dose (65yr and older) IM Intramuscular 05/06/2017 Administered Fluzone High Dose (65yr and older) IM Intramuscular 06/26/2019 Administered Fluzone High Dose (65yr and older) IM Intramuscular 05/08/2020 Administered Fluzone High Dose (65yr and older) IM Intramuscular 08/20/2021 Administered Fluzone High Dose (65yr and older) IM Intramuscular 06/05/2022 Administered Fluzone High Dose (65yr and older) IM Intramuscular 05/31/2023 Administered Fluzone Intradermal Quad private(18-64yrs) ID Intradermal 05/20/2016 Administered PNEUMOVAX 23 VACCINE IM Intramuscular 07/05/2019 Administe red Prevnar (PCV13) IM Intramuscular 05/20/2016 Administered Prevnar (PCV20) IM Intramuscular 12/06/2023 Administered Tetanus Tdap-Adacel (over 7yrs) IM Intramuscular 02/20/2010 Administered Problems Problem Type SNOMED Code ICD Code Onset Dates Problem Status W/U Status Risk Notes Problem Essential hypertension (41963357) Essential (primary) hypertension (I10) Active confirmed Problem Breast cancer (771342966) Breast cancer (C50.919) Active confirmed Problem Osteopenia (816174567) Osteopenia (M85.80) Active confirmed Problem Personal history of primary malignant neoplasm of breast (594662679) History of breast cancer (Z85.3) Active confirmed Problem Old myocardial infarction (1348190) History of non-ST elevation myocardial infarction (NSTEMI) (I25.2) Active confirmed Problem Acute non-ST segment elevation myocardial infarction (949780847) Non-ST elevation (NSTEMI) myocardial infarction (I21.4) Active confirmed Problem Peptic ulcer without haemorrhage AND without perforation (96224065) Peptic ulcer, site unspecified, unspecified as acute or chronic, without hemorrhage or perforation (K27.9) Active confirmed Problem Presence of coronary angioplasty implant and graft (Z95.5) Active confirmed Problem Hyperlipidaemia (85520897) Hyperlipidemia, unspecified hyperlipidemia type (E78.5) Active confirmed Problem Multiple nodules of lung (084855975) Lung nodules (R91.8) Active confirmed Problem History of peptic ulcer (432618346) History of peptic ulcer disease (Z87.11) Active confirmed Problem Tubular adenoma of colon (631289738) Tubular adenoma of colon (D12.6) Active confirmed Problem Acute non-ST segment elevation myocardial infarction (898480751) Non-STEMI (non-ST elevated myocardial infarction) (I21.4) Active confirmed Problem Squamous cell carcinoma of skin of lower extremity (266609197) Squamous cell carcinoma of skin of right lower extremity (C44.722) Active confirmed Problem History of squamous cell carcinoma of skin (413150363) History of squamous cell carcinoma of skin (Z85.828) Active confirmed Vital Signs Heart Rate 89 /min 12/27/2024 Blood pressure diastolic 62 mm Hg 12/27/2024 Height 64 in 12/27/2024 Blood pressure systolic 118 mm Hg 12/27/2024 Weight 163.8 lbs 12/27/2024 BMI 28.11 kg/m2 12/27/2024 Encounters Encounter Location Date Provider Diagnosis [facility] [address] [place] [id number] 03/23/2024 Jazmin Hampton [place] Acute bronchitis J20 .9 [facility] [address] [place] [id number] 09/06/2024 Miracle Kunz Influenza J11.1 [facility] [address] [place] [id number] 12/27/2024 Miracle Kunz Adult general medica l [...] of non-ST elevation myocardial infarction (NSTEMI) I25.2 [facility] [address] [place] [address] [place] [id number] 01/09/2025 Miracle Kunz Essential (primary) hypertension I10 and Hyperlipidemia, unspecified hyperlipidemia type E78.5 [facility] [address] [place] [address] [place] [id number] 01/25/2025 Miracle Kunz Hyperglycemia R73.9 and Elevated liver function tests R79.89 [facility] [address] [place] [address] [place] [id number] 01/12/2025 Miracle Kunz [facility] [address] [place] [address] [place] [id number] 02/08/2025 Miracle Kunz Assessments Encounter Date Diagnosis (ICD Code) Assessment Notes Treatment Notes Treatment Clinical Notes Section Notes 03/23/2024 Acute bronchitis (ICD-10 - J20.9) 09/06/2024 Influenza (ICD-10 - J11.1) Rest, fluids, tylenol or motrin for fevers. Home until fever free for 24-48 hours without the use of medication. 12/27/2024 Essential (primary) hypertension (ICD-10 - I10) Patient will come back fasting for labs : CBC, CMP, Lipid, TSH with reflex to Free T4, 12/27/2024 Adult general medical examination (ICD-10 - Z00.00) Patient instructed to return to office Annually for Annual Wellness Visits to include annual screenings of Pain assessment, Functional Ability assessment, Cognitive Ability assessment, Fall Risk assessment, Depression screening and Bladder control screening. 01/09/2025 Essential (primary) hypertension (ICD-10 - I10) 01/25/2025 Elevated liver function tests (ICD-10 - R79.89) 01/25/2025 Hyperglycemia (ICD-10 - R73.9) 01/09/2025 Hyperlipidemia, unspecified hyperlipidemia type (ICD-10 - E78.5) 12/27/2024 Hyperlipidemia, unspecified hyperlipidemia type (ICD-10 - [...] (NSTEMI) (ICD-10 - I25.2) Plan Of Treatment Pending Test Test Name Order Date CBC Fingerstick (in house) 01/09/2025 Ultrasound: liver 02/14/2025 Insurance Providers Payer Name Payer Address Payer Phone Subscriber Number Group Number Insured Name Patient Relationship to Insured Coverage Start Date Coverage End Date [employer]ARE [address] [address] [place], [place] [id number] MARIUSZ OLSEN Self - patient is the insured Medications Administered Medication Instructions Date of Administration Dosage Notes Bicillin LA 1,200,000 09/07/2007 2 mL Dexamethasone 09/07/2007 1 mL Medical (General) History Medical History History ICD Code Right Breast Cancer, Dx: Aug 2012, s/p l umpectomy and radiation Surgical History Surgery Date(Month/Year) cholecystectomy kidney stones tubal ligation colonoscopy, tubular adenomas, Dr. Vizcaino 06/06/2020 colonoscopy, tubular adenomas, Dr. Vizcaino 02/23/2019 EGD, gastritis, antral ulcerations, duod enitis 11/12/[address] Vizcaino 06/06/2020 EGD and colonoscopy, Dr. Vizcaino 12/01/2022 [place] 10/07/2022 CABG [facility] 01/06/2022 Hospitalization History Reason Date(Month/Year) [facility] CABG 01/06/2022
--- NOTE | 2025-02-19 10:54 | US_ITS ---
FINAL REPORT TECHNIQUE: Multiple transverse and longitudinal images CLINICAL HISTORY: ABNORMAL LIVER ENZYMES FINDINGS: Status post cholecystectomy. No biliary ductal dilatation is appreciated. No fluid collections are seen. There is fatty infiltration of the liver.. Limited portions of the right kidney are unremarkable. Pancreas is largely obscured. IMPRESSION: Fatty change of the liver. Reviewed, Interpreted and Dictated by Lenora Sim MD Transcribed by Jaida Hackett Authenticated and [facility]
--- OUTSIDE RECORDS SUMMARY | 2025-02-19 10:54 | XMS_ITS | Clinical Summary ---
Author Organization [facility] Address [address] [place] [id number] Care Team Providers Care Solar Designer/Installer Name Role Phone Ag Seay MD Primary Care Provider [phone] Social History Tobacco Use Types Packs/Day Years Used Date Smoking Tobacco: Never Assessed Abuse Screen Answer Date Recorded Unsafe at Home or Work/School Not on file Feels Threatened by Someone? Not on file 06/2023 Does Anyone Keep You from Co ntacting Others or Doint Things Outside the Home? Not on file 05/12/2023 Physical Sign of Abuse Present Not on file 1 Housing Stability Answer Date Recorded Current Living Arrangements Not on file 05/02 Potentially Unsafe Housing Conditions Not on marcelino e 05/12/2023 Family and Community Support Answer Victor M e Recorded Help with Day-to-Day Activities Not on file 05/12/2023 Lonely or Isolated Not on file 05/12/2023 Employment Answer Date Recorded Do you want help finding or keeping work or a fredy b? Not on file 05/12/2023 Disabilities Answer Date Recorded Concentrating, Remembering, or Making Decisions Difficulty Not on file 05/12/2023 Doing Errands Independently Difficulty Not on fi le 05/12/2023 Education Answer Date Recorded Help with school or training? Not on file Preferred Language Not on file 05/12/2023 Comments Unknown Sex and Gender Information Value Date Recorded Sex Assigned at Not on file Legal Sex Female 10:26 AM EST Gender Identity Not on file Sexual Orientation Not on file Plan of Treatment Health Maintenance Due Date Last Done Comments DXA SCAN 1952 TDAP/TD VACCINES (1 - Tdap) 1971 MAMMOGRAM 1992 COLOGUARD 1997 COLON CANCER SCREENING 5 YEAR SIGMOIDOSCOPY 1997 COLONOSCOPY [address] CANCER SCREENING 1997 CT COLONOGRAPHY 1997 FECAL OCCULT BLOOD TEST 1997 FIT Testing (1 year) 1997 Pneumococcal Vaccine 50+ (1 of 1 - PCV) 2002 ZOSTER VACCINE (1 of 2) 2002 ANNUAL PHYSICAL 08/04/2017 HEPATITIS C SCREENING 08/04/2017 PT PLAN OF CARE 08/04/2017 COVID-19 Vaccine (2023- season) 2024 INFLUENZA VACCINE 05/02/2025 Insurance [facility] MEDICARE REPLACE Care Teams Solar Designer/Installer Relationship Specialty Start Date End Date Ag Seay MD [address] [facility] [address] [place] [address] PCP - General Family Medicine 08/04/17
--- OUTSIDE RECORDS SUMMARY | 2025-02-19 10:54 | XMS_ITS | Clinical Summary ---
Author Organization [facility] Address [address] [place] [address] Care Team Providers Care Central Aisle Cashier Name Role Phone Sven Mathews MD Primary Care Provider [phone] Lux Barros MD Unavailable [phone] Allergies No known active allergies Medications esomeprazole (NexIUM) [address] capsule Take 40 mg by mouth 1 (one) time each day before breakfast. Do not open capsule. Active aspirin 81 MG EC tablet Take 81 mg by mouth 1 (one) time each day. Active Multiple Vitamin (multivitamin) tablet Take 1 tablet by mouth 1 (one) time each day. Active sucralfate (Carafate) 1 g tablet Take 1 g by mouth 4 (four) times a day if needed. Active atorvastatin (Lipitor) 80 MG tablet Take 1 tablet (80 mg total) by mouth every night. 30 tablet 2 01/14/2022 Active metoprolol tartrate (Lopressor) 25 MG tablet Take 1 tablet (25 mg total) by mouth 2 (two) times a day. 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 Gastroesophageal reflux disease without esophagi tis 01/13/2022 Anxiety 01/10/2022 PUD (peptic ulcer disease) 01/07/2022 HTN (hypertension) 01/07/2022 HLD (hyperlipidemia) 01/07/2022 Resolved Problems Problem Noted Date Diagnosed Date Resolved Date Acute respiratory failure with hypoxia 01/13/2022 01/14/2022 Hypokalemia 01/13/2022 01/20/2022 Hyponatremia 01/13/2022 01/14/2022 Hypermagnesemia 01/13/2022 01/14/2022 Hypocalcemia 01/13/2022 01/20/2022 Volume overload state of heart 01/10/2022 01/14/2022 Overview (01/10/2022): - Diuresis per protocol - Today (01/10) given 40 mg PO Lasix Acute bilateral thoracic back pain 01/10/2022 01/14/2022 Overview (01/10/2022): - Spasmodic in nature - Methocarbamol 750 mg Q6hrs PRN; lidocaine patch Leukocytosis 01/09/2022 01/14/2022 Overview (01/10/2022): - Trend WBC count - Will monitor fever curve and any developing signs of infection - Added differential to morning CBC for 01/11 Thrombocytopenia 01/09/2022 01/14/2022 Overview (01/09/2022): - am Plts 110K - Will monitor for signs of bleeding including development of new petechiae or oropharngeal/gum bleeding. Will transfuse as needed. - If plts remain stable and there's no evidence of bleeding, can proceed with DVT PPx. Shock 01/09/2022 01/14/2022 Overview (01/10/2022): - Post op and after fast track extubation today, patient has MAPs in the low 60s; was on NE gtt; received 250 mL 5% albumin; 1g calcium chloride - 1 g Calcium chloride PRN, to keep iCalcium >4.7 - Goal MAPs >65 Anemia 01/09/2022 01/09/2022 Hyperkalemia 01/09/2022 01/10/2022 Overview (01/09/2022): - Received electrolyte replacement this morning (01/09), being stopped when patient became hyperkalemic. Has been without QRS changes. - Will continue to monitor, afternoon K+ was 5.7. Angina at rest 01/08/2022 01/09/2022 Overview (01/08/2022): Angina at rest Started NG gtt - relieves pain and patient comfortable NSTEMI (non-ST elevated myoc ardial infarction) 01/07/2022 01/20/2022 COPD (chronic obstructive pulmonary disease) 01/08/2022 Overview (01/08/2022): Present on arrival Complicates all aspects of care DM (diabetes mellitus) 01/07/202201/08 Immunizations Immunization Administration Dates Next Due Influenza, high-dose, quadrivalent 08/20/2021 Pneumococcal Polysaccharide PPV23 07/05/2019 TD (adult), 2 Lf tetanus tox oid, preservative free, adsorbed 03/19/1998 Family History Medical History Relation Name Comments Coronary artery disease Father Lung cancer Mother Relation Name Status Comments Father Mother Social History Tobacco Use Types Packs/Day Years Used Date Smoking Tobacco: Never Smokeless Tobacco: Never Alcohol Use Standard Drinks/Week Comments Never 0 (1 standard drink = 0.6 oz pur e alcohol) Comments Unknown Sex and Gender Information Value Date Recorded Sex Assigned at Not on file Legal Sex Female 8:45 PM EDT Gender Identity Not on file Sexual Orientation Not on file Last Filed Vital Signs Vital Sign Reading Time Taken Comments Blood Pressure 148/78 04/15/2022 10:19 AM EDT Pulse 58 04/15/2022 10:19 AM EDT Temperature 36.5 C (97.7 F) 01/14/2022 7:54 AM EDT Respiratory Rate 15 01/14/2022 7:54 AM EDT Oxygen Saturation 98% 04/15/2022 10:19 AM EDT Inhaled Oxygen Concentration - - Weight 70.4 kg (155 lb 1.6 oz) 04/15/2022 10:19 AM EDT Height 162.6 cm (5' 4 ) 04/15/2022 10:19 AM EDT Body Mass Index 26.62 04/15/2022 10:19 AM EDT Plan of Treatment Health Maintenance Due Date Last Done Comments [facility]-Bone Density Scan 1950 [facility]-Depression Screening 1952 [facility]-Hepatitis C Screening 1950 [facility]-Medicare Annual Wellness (AWV) 1950 [facility]-/Child/Adol SDOH Screenings 1950 [facility]- SDOH Screenings 1970 [facility]-Adult SDOH Screenings 1970 CT Colonography 1997 Colonoscopy 1997 FIT-DNA 1997 FIT 1997 FOBT 1997 Sigmoidoscopy 1997 [facility]-Colorectal Cancer Screening 1997 [facility]-DTaP,Tdap,and Td Vaccine s (1 - Tdap) 03/20/1998 03/19/1998 [facility]-Breast Cancer Screening 2002 [facility]-Zoster Vaccines (1 of 2) 2002 [facility]-Pneumococcal Vaccine: 50 + Years (2 of 2 - PCV) 07/05/2020 07/05/2019 [id number] Vaccine (4 - season) 2024 06/11/2021, 10/31/2020, 10/03/2020 [facility]-Influenza Vaccine (#1) 2025 08/20/2021 [facility]-RSV Vaccine: 60+ Years o r (1 - 1-dose 75+ series) 2027 [facility]-Diabetes: Hemoglobin A1C Discontinued 01/14/2022 [facility]-Obesity Intervention Completed 04/15/2022 HPV Vaccines Aged Out No longer eligi ble based on patient's age to complete this topic [facility]-HIB Vaccines Aged Out No longer e ligible based on patient's age to complete this topic [facility]-Hepatitis A Vaccines Aged Out No longer eligible based on patient's age to complete this topic [facility]-IPV Vaccines Aged Out No longer e ligible based on patient's age to complete this topic [facility]-Rotavirus Vaccines Aged Out No lo nger eligible based on patient's age to complete this topic Procedures Procedure Name Priority Date/Time Associated Diagnosis Comments HEMOGLOBIN A1C Routine 01/14/2022 4:04 AM EDT from Last 3 Months or Most Recently Relevant to Health Maintenance Results * Hemoglobin A1c (01/14/2022 4:04 AM EDT) Hemoglobin A1c 5.6 <5.7 % 01/14/2022 6:01 AM EDT [facility] Blood Venous blood specimen / Unknown Venipuncture / Unknown 01/14/2022 4:04 AM EDT 01/14/2022 5:09 AM EDT Narrative [facility] - 01/14/2022 6:01 AM EDT HA1C Interpretive Data: Diagnosis of Diabetes: Diabetic > or = 6.5% Pre-diabetic 5.7 to 6.4% Non-diabetic < or = 5.6% Glycemic Targets for Type I and Type II Diabetics: Non- Adults <7.0% Adults <6.0% Children and Adolescents <7.5% Source: [place] [employer]. Standards of medical care in diabetes,2017. Diabetes Care.2017:40 (suppl 1):S1-S135. HbA1c assay performed by an ion-exchange chromatography method that is certified traceable to the DCCT. Lilliana Quevedo TUBE ROOM SUPERVISOR LAB BLOOD ORDERABLES Final Res ult [facility] [address] [place] [phone] from Last 3 Months or Most Recently Relevant to Health Maintenance Insurance [facility] MEDICARE Advance Directives * Full Code (Latest Code Status on File) Date Activated Date Inactivated Comments 01/09/2022 1:32 AM 01/14/2022 1:41 PM Question Answer Comments Patient has decision-making capacity? Yes Care Teams Central Aisle Cashier Relationship Specialty Start Date End Date Sven Mathews MD [address] [place] [facility] [address] [address] PCP - General 12/13/20 Lux Barros MD [address] [place] [address] Referring Physician Cardiology 01/08/22
--- OUTSIDE RECORDS SUMMARY | 2025-02-19 10:54 | XMS_ITS | Encounter Summary ---
Author Organization Healthcare Address [address] [place] [address] Care Team Providers Care Domestic Technician Name Role Phone Sven Mathews MD Primary Care Provider [phone] Lux Barros MD Unavailable [phone] Encounter Details Date Type Department Care Team (Late st Contact Info) Description 01/12/2022 Lab Requisition [facility] [address] [place] [address] Mildred Gonzales MD [address] [place] [address] Encounter for general adult medical examination without abnormal findings Social History Tobacco Use Types Packs/Day Years Used Date Smoking Tobacco: Never Assessed Comments Unknown Sex and Gender Information Value Date Recorded Sex Assigned at Not on file Legal Sex Female 8:45 PM EDT Gender Identity Not on file Sexual Orientation Not on file COVID-19 Exposure Response Date Recorded In the last 10 days, have yo u been in contact with someone who was confirmed or suspected to have Coronavirus/COVID-19? No / Unsure 01/14/2022 10:51 AM EDT documented as of this encounter Plan of Treatment Not on file documented as of this encounter Procedures Procedure Name Priority Date/Time Associated Diagnosis Comments MULTI DRUG RESISTANCE TEST Routine 01/12/2022 9:30 AM EDT Encounter for general adult medical examination without abnormal findings documented in this encounter Results * Multi Drug Resistance Test (01/12/2022 9:30 AM EDT) Culture No growth at day 1 01/13/2022 1:34 PM EDT [facility] Swab (Nares and Veronica Rectal) 01/12/2022 9:30 AM EDT 01/12/2022 10:29 AM EDT Mildred Clark MD LAB MICROBIOLOGY - GENERAL ORDERABLES Final Result Performing Organization Address City/State/[facility] Co de Phone Number [facility]ALTH[facility] [address] [place] [address] documented in this encounter Visit Diagnoses Diagnosis Encounter for general adult medical examination without abnormal findings documented in this encounter Care Teams Domestic Technician Relationship Specialty Start Date End Date Sven Mathews MD [address] [facility] [address] [place] [address] PCP - General 12/13/20 Lux Barros MD [address] [place] [facility] [address] [place] [address] Referring Physician Cardiology 01/08/22 documented as of this encounter
== END 2025-02-19 23:59 | disposition home or self-care (01) ==
LOC: RAD 10:48
PROVIDERS: PCP Family Medicine; Visit Provider Physician Assistant
DX: K76.0 Fatty (change of) liver, not elsewhere classified (principal)
CPT/HCPCS: 76705